=== PATIENT | female | born 1985 | race Caucasian/White ===

== ENCOUNTER 2017-10-23 00:10 | Emergency (ER) | payer SELFPAY ==
[2017-10-23 00:11] VITALS: BP 147/96; PULSE 90; RESP 17; TEMP 36.2; O2SAT 100; BMI 29.3
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
--- NOTE | 2017-10-23 01:02 | ED.DEP ---
ED Disposition - Plan for ED Patient: Disposition: Home or Assisted Living Chief Complaint: Lower Extremity Injury Instructions: ED Fx Ankle Lateral Malleolus Prescriptions: Hydrocodone Bitart/Apap 5-325 [[place] 5/325] 1 - 2 tab PO Q4H PRN PRN 3 Days #12 tab PRN Reason: Pain Referrals: Care Physician,No Primary [Primary Care Provider] - Martínez Dixon DO [STAFF PHYSICIAN] -
--- NOTE | 2017-10-23 01:06 | DCINST.ED_ITS ---
ED Disposition - Plan for ED Patient: Disposition: Home or Assisted Living Chief Complaint: Lower Extremity Injury Instructions: ED Fx Ankle Lateral Malleolus Prescriptions: Hydrocodone Bitart/Apap 5-325 [[place] 5/325] 1 - 2 tab PO Q4H PRN PRN 3 Days #12 tab PRN Reason: Pain Referrals: Care Physician,No Primary [Primary Care Provider] - Martínez Dixon DO [STAFF PHYSICIAN] -
[2017-10-23] MEDS: HYDROcodone Bitartrate/Apap 5/325 Tablet PO (01:53)
== END 2017-10-23 01:56 | disposition home or self-care (01) ==
PROVIDERS: Emergency Provider Emergency Medicine
DX: S82.831A Other fracture of upper and lower end of right fibula, initial encounter for closed fracture (principal); S90.31XA Contusion of right foot, initial encounter; V86.95XA Unspecified occupant of 3- or 4- wheeled all-terrain vehicle (ATV) injured in nontraffic accident, initial encounter; Y93.9 Activity, unspecified; Y92.9 Unspecified place or not applicable; I10 Essential (primary) hypertension
CPT/HCPCS: 73610; 73630; 99284

== ENCOUNTER → 2017-10-29 10:46 | Outpatient (CLI) | payer SELFPAY ==
--- NOTE | 2017-10-29 10:48 | RAD_ITS ---
STUDY: X-RAY - RIGHT ANKLE REASON FOR EXAM: Female, 32 years old. Trauma TECHNIQUE: 2 view(s) of the ankle. COMPARISON: None. FINDINGS: There is again noted an oblique minimally displaced fracture of the distal fibular shaft. Normal medial and lateral malleoli. Normal tibiotalar articulation and ankle mortise. Normal visualized talus and calcaneus. The visualized subtalar, talonavicular, calcaneocuboid and tarsal articulations are normal. There is mild circumferential soft tissue swelling of the right ankle region. RAD/Ankle 2 Views IMPRESSION: Oblique minimally displaced fracture of the distal fibular shaft similar in appearance to the previous study. No significant callus or periosteal new bone formation is evident as of yet. Mild circumferential soft tissue swelling of the right ankle region. Electronically Signed: Gordon Rojas MD at 17:47 EDT , Service support ,
== END ==
PROVIDERS: Visit Provider Orthopaedic Surgery
DX: S82.831A Other fracture of upper and lower end of right fibula, initial encounter for closed fracture (principal); X58.XXXA Exposure to other specified factors, initial encounter
CPT/HCPCS: 73600

== ENCOUNTER 2017-11-07 06:05 | Day surgery (SDC) | payer MEDICAID, SELFPAY ==
[2017-11-07] VITALS (7 sets, daily range): BP systolic 115–144; BP diastolic 69–91; PULSE 69–82; RESP 16; TEMP 36.1–37.1; O2SAT 100; BMI 29.1
[2017-11-07 06:41] LABS: Internal QC Validated? YES +Cl - CLEAR BKGD; Pregnancy, Urine Negative Negative
--- NOTE | 2017-11-07 07:00 | RAD_ITS ---
STUDY: X-RAY - RIGHT ANKLE REASON FOR EXAM: Syndesmotic repair. TECHNIQUE: 3 fluoroscopic view(s) of the ankle. COMPARISON: Radiographs 10/29/2017. FINDINGS: There is a nondisplaced fracture of the distal fibular diaphysis and reduction of the ankle mortise following placement of two syndesmotic screws. 12.1 seconds of fluoroscopy time was used. Electronically Signed: Abdirizak Barrios MD at 9:35 EDT Tel , Service support , RAD/Ankle 2 Views
[2017-11-07] MEDS: Clindamycin 900 MG/50 ML BAG 75 MG IV (07:35)
--- NOTE | 2017-11-07 07:38 | PCM.DC.ORTHO ---
Discharge Diet: No Restrictions - nonweight bearing left leg, elevate, ice as tolerated, follow up in 2 weeks; do not get splint wet, call with concerns Discharge Activity: May Not Drive May shower in (days): 1 Ice area for (Minutes): 20 - Every hour while awake. Weight Bearing Status: Weight bearing as tolerated Keep extremity elevated above heart level: Operative Extremity Call your doctor if your incision/area has: Continuous Slow Oozing, Sudden Increased Bleeding, Increased Pain/ Swelling, Increased Redness, Foul Smelling Discharge Call your doctor if you observe: Fever of 101 or Higher, Coldness, Increased Pain, Numbness or Tingling, Change in Color, Calf discomfort Allergies/Adverse Reactions: Allergies cefuroxime axetil [From Ceftin] Allergy (Verified 10/23/17 00:11) Other cephalexin monohydrate [From Keflex] Allergy (Verified 10/23/17 00:11) Anaphylaxis codeine Allergy (Verified 10/23/17 00:11) Unknown Medications to take at Discharge Oxycodone HCl/Acetaminophen [Percocet 5/325] 1 - 2 tablet PO Q6H PRN PRN 5 Days #56 tablet 11/07/17 The following prescriptions were given: Oxycodone HCl/Acetaminophen [Percocet 5/325] 1 - 2 tablet PO Q6H PRN PRN 5 Days #56 tablet PRN Reason: Pain Primary Care Physician: Care Physician,No Primary [Primary Care Provider] - Please Follow Up With: Humera Hickman, - [phone]
[2017-11-07] MEDS: Ciprofloxacin 400 MG/200 ML BAG 200 MG IV (07:50)
[2017-11-07] MEDS: Mupirocin Ointment 22gm Tube 1 APPLIC (08:13)
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
[2017-11-07] MEDS: HYDROcodone Bitartrate/Apap 5/325 Tablet PO (09:27)
--- NOTE | 2017-11-07 11:56 | SUR.PHASEII ---
CALLED INTO ROOM BY PATIENT WHO HAD AMBULATED INDEPENDENTLY AROUND ROOM AND WAS PARTIALLY DRESSED. BEGAN SCREAMING AT RN THAT SHE WANTED TO LEAVE IMMEDIATELY, I NEED TO SMOKE OR I'M GOING TO GO CRAZY. INSISTED ON BEING DISCHARGED NOW.
== END 2017-11-07 11:57 | disposition home or self-care (01) ==
LOC: SDC 06:10 → AC 06:11
PROVIDERS: Visit Provider Orthopaedic Surgery
PROC: (CPT 27829; principal; 2017-11-07 07:10)
DX: S82.434A Nondisplaced oblique fracture of shaft of right fibula, initial encounter for closed fracture (principal); S93.431A Sprain of tibiofibular ligament of right ankle, initial encounter; V86.95XA Unspecified occupant of 3- or 4- wheeled all-terrain vehicle (ATV) injured in nontraffic accident, initial encounter; Y93.9 Activity, unspecified; Y92.9 Unspecified place or not applicable; F17.200 Nicotine dependence, unspecified, uncomplicated
CPT/HCPCS: 27829; 73600; 76000; 81025; J7120; J0744

== ENCOUNTER → 2017-11-20 13:24 | Outpatient (CLI) | payer SELFPAY ==
--- NOTE | 2017-11-20 13:27 | RAD_ITS ---
STUDY: X-RAY - RIGHT ANKLE REASON FOR EXAM: Fracture. TECHNIQUE: 3 view(s) of the ankle. COMPARISON: Radiographs 10/29/2017. FINDINGS: There is a nondisplaced fracture of the distal fibular diaphysis with early callus formation. There are syndesmotic screws. Normal medial and lateral malleoli. Normal tibiotalar articulation and ankle mortise. Normal visualized talus and calcaneus. The visualized subtalar, talonavicular, calcaneocuboid and tarsal articulations are normal. The radiographs were obtained through a cast. RAD/Ankle min 3 Views IMPRESSION: Healing nondisplaced fracture of the distal fibula. Electronically Signed: Abdirizak Barrios MD at 15:26 EDT Tel , Service support ,
== END ==
PROVIDERS: Visit Provider Orthopaedic Surgery
DX: S82.401A Unspecified fracture of shaft of right fibula, initial encounter for closed fracture (principal)
CPT/HCPCS: 73610

== ENCOUNTER 2017-12-10 12:18 | Emergency (ER) | payer MEDICAID, SELFPAY ==
[2017-12-10 12:19] VITALS: BP 140/79; PULSE 67; RESP 15; TEMP 36.6; BMI 27.1
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
--- NOTE | 2017-12-10 12:55 | RAD_ITS ---
STUDY: X-RAY - RIGHT TIBIA AND FIBULA REASON FOR EXAM: Female, 32 years old. Twisting injury. TECHNIQUE: 2 view(s) of the tibia and fibula were obtained. COMPARISON: Comparison is made to prior examination dated November 20, 2017. FINDINGS: Normal visualized tibia. Healing fracture of the distal fibula with callus formation. 2 screws are seen transfixing the distal tibial fibular joint. The soft tissue structures are unremarkable. RAD/Tibia & Fibula 2 Views IMPRESSION: No acute abnormality is seen. Electronically Signed: Parvez Hi MD at 13:28 EDT Tel [phone], Service support ,
--- NOTE | 2017-12-10 13:38 | ED.DEP ---
ED Disposition - Plan for ED Patient: Disposition: Home or Assisted Living Chief Complaint: Lower Extremity Injury Referrals: Humera Hickman DO [STAFF PHYSICIAN] - 1 Week if not improving Additional Instructions: Ice to Right lower leg. Motrin for pain and inflammation. Follow-up with Dr. Hickman if not improving in 1 week. No new breaks seen on x-ray.
[2017-12-10 13:51] VITALS: PULSE 72; RESP 17; O2SAT 99
== END 2017-12-10 13:52 | disposition home or self-care (01) ==
PROVIDERS: Emergency Provider Emergency Medicine
DX: S82.831D Other fracture of upper and lower end of right fibula, subsequent encounter for closed fracture with routine healing (principal); X58.XXXD Exposure to other specified factors, subsequent encounter; Z72.0 Tobacco use
CPT/HCPCS: 73590; 99282

== ENCOUNTER 2018-01-16 10:20 | Emergency (ER) | payer MEDICAID, SELFPAY ==
[2018-01-16 10:21] VITALS: BP 159/99; PULSE 102; RESP 17; RESP 18; TEMP 36.5; O2SAT 99; BMI 28.0
--- NOTE | 2018-01-16 10:33 | RAD_ITS ---
STUDY: X-RAY - RIGHT ANKLE REASON FOR EXAM: Female, 32 years old. Pain following injury. TECHNIQUE: Single oblique view(s) of the ankle. COMPARISON: None. FINDINGS: There is evidence of 2 screws at the distal tibial fibular joint. There is evidence of a healed fracture of the distal fibula. The soft tissue structures are unremarkable. RAD/Ankle 2 Views IMPRESSION: No acute abnormality is seen. Electronically Signed: Parvez Hi MD at 11:07 EDT Tel [phone], Service support ,
--- NOTE | 2018-01-16 10:33 | RAD_ITS ---
STUDY: X-RAY - RIGHT TIBIA AND FIBULA REASON FOR EXAM: Female, 32 years old. Pain and swelling following recent injury. TECHNIQUE: 2 view(s) of the tibia and fibula were obtained. COMPARISON: None. FINDINGS: Normal visualized tibia. Healed fracture of the distal fibular shaft. 2 metallic screws are seen transfixing the distal tibial fibular joint. The soft tissue structures are unremarkable. RAD/Tibia & Fibula 2 Views IMPRESSION: No acute abnormality is seen. Electronically Signed: Parvez Hi MD at 11:08 EDT Tel [phone], Service support ,
--- NOTE | 2018-01-16 10:35 | ED.VISSUMM ---
- ER Visit Summary Date of Service: 01/16/18 Chief Complaint: Ankle pain History of Present Illness: The patient is a 32 F with ankle pain for 3 days now. She twisted her ankle. The pain is over her right lateral malleolus and it does radiate up her mid lower leg. No other injuries or complaints. She did have surgery on her right lateral malleolus in September of this year. She has had ongoing pain since the surgery. Physical Examination: Vital signs unremarkable. Inspection of her right leg shows a healed surgical incision over her lateral malleolus. No obvious deformities. Skin is intact. Good range of motion. She is neurovascular intact distally. She does have pain on palpation over her right lateral malleolus and right shaft tibia/fibula. Calves soft and supple. Test Results: X-rays of the right ankle and right tib-fib were obtained. Emergency Department Course and Treatment: Patient treated with [place] and naproxen while awaiting results. X-rays negative. Patient advised to rest, ice, elevate. Anti-inflammatories for pain. She was given an Aircast. She has crutches at home, and she was advised to use them. She was given a work note and advised to follow-up with her doctor. Return for any new or worsening issues. Treatment Plan: As above Disposition: Discharged Impression: 1. Right ankle pain This note was generated with [employer] dictation software. It may contain incorrect words, spelling, and punctuation that were not noted in review of the chart prior to signing ED Disposition - Plan for ED Patient: Chief Complaint: Lower Extremity Injury Referrals: Care Physician,No Primary [Primary Care Provider] -
[2018-01-16] MEDS: HYDROcodone Bitartrate/Apap 5/325 Tablet PO (10:45)
[2018-01-16] MEDS: Naproxen 500 MG Tablet PO (10:45)
--- NOTE | 2018-01-16 11:33 | ED.DEP ---
ED Disposition - Plan for ED Patient: Chief Complaint: Lower Extremity Injury Instructions: What Are Ankle Sprains? Additional Instructions: follow up with your doctor
== END 2018-01-16 11:50 | disposition home or self-care (01) ==
LOC: ED 10:36
PROVIDERS: Emergency Provider Emergency Medicine
DX: M25.571 Pain in right ankle and joints of right foot (principal)
CPT/HCPCS: 73590; 73600; 99282

== ENCOUNTER 2018-04-07 23:48 | Emergency (ER) | payer SELFPAY ==
[2018-04-07 23:50] VITALS: BP 163/96; PULSE 82; RESP 17; TEMP 36.8; O2SAT 100; BMI 27.2
--- NOTE | 2018-04-08 00:47 | ED.VISSUMM ---
- ER Visit Summary Date of Service: 04/08/18 Chief Complaint: Dental pain History of Present Illness: The patient is a 33 F who reports long-standing bad teeth that need to be pulled. She states she has had increased pain to her left lower teeth over the past 3 days. No recent injury is been noted. No fever or chills. Physical Examination: Vital signs significant for blood pressure of 163/96, otherwise unremarkable. Head and neck examination was no facial edema or erythema. Intraoral examination reveals multiple dental caries and decayed teeth. She does have gum edema surrounding the left mandibular lateral incisor, canine, and first premolar. There is no evidence of Jens's angina. She has no trismus. There is no significant cervical lymphadenopathy. Heart is regular rate and rhythm without murmur. Lung sounds are clear. Test Results: [] Emergency Department Course and Treatment: Patient is treated with Naprosyn and Pen-Vee K, first doses given here. Dental referral list is provided. Blood pressure at time of discharge is 136/86. Treatment Plan: [] Disposition: Discharge Impression: Odontalgia This note was generated with [employer] dictation software. It may contain incorrect words, spelling, and punctuation that were not noted in review of the chart prior to signing ED Disposition - Plan for ED Patient: Disposition: Home or Assisted Living Chief Complaint: Dental Instructions: ED Tooth Pain Prescriptions: Naproxen [Naprosyn] 500 mg PO BID PRN PRN #20 tablet PRN Reason: Pain Penicillin V Potassium 500 mg PO 4X/DAY #40 tablet Additional Instructions: Dental list provided
[2018-04-08 00:53] VITALS: BP 136/86; PULSE 78; RESP 16; O2SAT 98
[2018-04-08] MEDS: Penicillin Vk 250 MG Tablet 500 MG PO (00:54)
[2018-04-08] MEDS: Naproxen 500 MG Tablet PO (00:54)
== END 2018-04-08 01:01 | disposition home or self-care (01) ==
PROVIDERS: Emergency Provider Emergency Medicine
DX: K02.9 Dental caries, unspecified (principal); Z72.0 Tobacco use
CPT/HCPCS: 99283

== ENCOUNTER 2018-07-06 14:12 | Emergency (ER) | payer SELFPAY ==
[2018-07-06 14:12] VITALS: BP 164/105; PULSE 92; RESP 93; TEMP 36.6; O2SAT 100; BMI 26.4
--- NOTE | 2018-07-06 14:37 | RAD_ITS ---
STUDY: X-RAY - RIGHT HIP REASON FOR EXAM: Female, 33 years old. Fall. Pain. TECHNIQUE: 2 views of the hip. COMPARISON: None. FINDINGS: Normal femoral head, neck, intertrochanteric region and visualized proximal femur. Normal acetabulum. Normal hip joint. Normal visualized superior and inferior pubic rami and ischial tuberosities. RAD/HIP, UNI W/ Pelvis 2-3 Views IMPRESSION: Normal x-ray examination of the hip. Electronically Signed: Clement Trevino MD at 15:19 EST , Service support ,
[2018-07-06] MEDS: HYDROcodone Bitartrate/Apap 5/325 Tablet PO (15:16)
--- NOTE | 2018-07-06 15:57 | ED.DCSUM_ITS ---
- ER Visit Summary Date of Service: 07/06/18 Chief Complaint: [Injury to right hip] History of Present Illness: The patient is a 33 F [presents to the emergency department complaint of injury to her right hip that occurred 3 days ago. Patient states that she was carrying some wood when she tripped over a piece of wood injuring her right hip in a twisting fashion. Patient did not actually fall. Since that time patient's been having pain in her right hip that at times will radiate down her right leg. Patient also complains of some chronic pain to her right lower extremity from prior fracture that required surgery earlier in the year. Patient's orthopedic surgeon is Dr. Murillo. Patient has no primary care physician.] Physical Examination: HEENT-PERRLA, EOMI. Cranial nerves II through XII grossly intact. TMs clear. Mucous membranes moist. No adenopathy. Cardiovascular-regular rate and rhythm without murmur or ectopy Lungs-clear to auscultation, chest wall stable without crepitus or subcu emphysema Abdomen-normoactive bowel sounds, soft, nontender, no rebound or rigidity, no peritoneal signs. Extremities-intact ?4, normal range of motion, normal pulses. Right hip-patient has diffuse tenderness about the right hip and into the right buttock over the piriformis muscle. Patient has pain with straight leg raising and logrolling. No obvious deformity noted. No erythema or warmth noted. Neurovascular intact distally. Patient does have some bruising to the right anterior ortiz that she states is from bumping into wood and from carrying wood. Patient has some tenderness to palpation over the right lateral distal tibia just above the site of her surgical incision. [] Test Results: [X-rays of the right hip and pelvis obtained were normal] Emergency Department Course and Treatment: [Patient was given one [place] for pain.] Treatment Plan: [Patient advised to follow-up with her orthopedic surgeon within next 3-5 days.] Disposition: [Discharged home in stable condition] Impression: [Right hip sprain] This note was generated with [employer] dictation software. It may contain incorrect words, spelling, and punctuation that were not noted in review of the chart prior to signing ED Disposition - Plan for ED Patient: Chief Complaint: Lower Extremity Injury Referrals: Care Physician,No Primary [Primary Care Provider] -
--- NOTE | 2018-07-06 15:58 | DCINST.ED_ITS ---
ED Disposition - Plan for ED Patient: Chief Complaint: Lower Extremity Injury Instructions: ED Sprain Hip Prescriptions: Hydrocodone Bitart/Apap 5-325 [[place] 5MG-325MG] 1 tab PO Q4H PRN PRN 2 Days #14 tab PRN Reason: Pain Referrals: Care Physician,No Primary [Primary Care Provider] - Humera Hickman DO [STAFF PHYSICIAN] - 3-5 Days
[2018-07-06 16:12] VITALS: RESP 18
--- OUTSIDE RECORDS SUMMARY | 2018-10-09 11:46 | XMS RPT_ITS ---
:1985 Author Organization OHIP Support Name Relationship Address Phone GONSALO, MARY Unavailable [address] + [place] [address] RED LOBSTER Un[address] + [place] [address] [employer] Unavailable [address] + [place] [address] GONSALO, MARY Unavailable [address] + [place] [address] [employer] Unavailable [address] + [place] [address] GONSALO, MARY Unavailable [address] + [place] [address] GONSALO, MARY Unavailable [address] + [place] [address] UE Unavailable Unavailable Unavailable GONSALO, MARY Unavailable [address] + [place] [address] UE Unavailable Unavailable Unavailable GONSALO, MARY Unavailable [address] + [place] [address] UE Unavailable Unavailable Unavailable GONSALO, MARY Unavailable [address] + [place] [address] UE Unavailable Unavailable Unavailable B[employer] Unavailable [address] + [place] [address] GONSALO, MARY Unavailable [address] + [place] [address] [employer] Unavailable [address] + [place] [address] GONSALO, MARY Unavailable [address] + [place] [address] GONSALO, MARY Unavailable [address] + [place] [address] UE Unavailable Unavailable Unavailable GONSALO, MARY Unavailable [address] + [place] [address] UE Unavailable Unavailable Unavailable GONSALO, MARY Unavailable [address] + [place] [address] UE Unavailable Unavailable Unavailable Care Team Providers Name Role Phone Antonio Zaldivar Attending Unavailable No Doctor Assigned, Nodr Primary Care Unavailable MARY FERREIRA Referring Unavailable COBY IYV Referring Unavailable Primay Care Physicia, No Primary Care Unavailable Ungur, Remus Attending Unavailable Primay Care Physicia, No Primary Care Unavailable Mikayla Hanson Attending Unavailable Primay Care Physicia, No Primary Care Unavailable Marvel Palomares Attending Unavailable Chicorelli, Humera Attending Unavailable Primay Care Physicia, No Referring Unavailable Primay Care Physicia, No Primary Care Unavailable Elmer Curiel Attending Unavailable Chicorelli, Humera Attending Unavailable Chicorelli, Humera Attending Unavailable ChicorelHumera greenberg Referring Unavailable Primay Care Physicia, No Primary Care Unavailable Chicorelyari, Humera Attending Unavailable Primay Care Physicia, No Referring Unavailable Primay Care Physicia, No Primary Care Unavailable Vick, Humera Attending Unavailable Chicorelyari, Humera Referring Unavailable Primay Care Physicia, No Primary Care Unavailable Martínez Dixon Attending Unavailable Martínez Dixon Referring Unavailable Primay Care Physicia, No Primary Care Unavailable Martínez Dixon Attending Unavailable Primay Care Physicia, No Referring Unavailable Primay Care Physicia, No Primary Care Unavailable Primay Care Physicia, No Primary Care Unavailable Dakota Campoverde Attending Unavailable PROBLEMS PROBLEMS DATE TYPE CONDITION / CODE ATTENDING STATUS SOURCE 07/06/2018 Unknown S73.109A - Ungur, Remus Active [place] Unspecified sprain [facility] hip, initial Repository encounter / S73.109A(ICD-10) 03/10/2018 Active Pain in right NA Active [facility] finger(s) / Main [place] M79.644(ICD-10) Repository 12/10/2017 Active Pain in right NA Active [facility] lower leg / Main [place] M79.661(ICD-10) Repository 11/20/2017 Unknown S82.401A - Chicorelli, Active [place] Unspecified [facility] fracture of shaft Hospital of right fibula, Repository initial encounter for closed fracture / S82.401A(ICD-10) 06/05/2018 Unknown S82.434A - Chicorelli, Active [place] Nondisplaced Humera Community oblique fracture Hospital of shaft of right Repository fibula, initial encounter for closed fracture / S82.434A(ICD-10) 06/05/2018 Unknown S93.431A - Sprain Vick, Active [place] of tibiofibular [facility] ligament of right Hospital ankle, initial Repository encounter / S93.431A(ICD-10) 10/29/2017 Unknown M25.571 - Pain in Martínez Dixon Active [place] right ankle and Community joints of right Hospital foot / Repository M25.571(ICD-10) 10/29/2017 Unknown S82.899A - Other Martínez Dixon Active [place] fracture of Community unspecified lower Hospital leg, initial Repository encounter for closed fracture / S82.899A(ICD-10) PROCEDURES PROCEDURES No Procedure Records FoundRESULTS RESULTS PROGRESS Observed: 07/26/2018 Status: COMPLETED Source: [place] 11:11 AM [facility] REPOSITORY HNO ID: [id number] Author: Jazmine Willson (Pa) Service: (none) Author Type: Physician Patent Engineer Type: Progress Notes Filed: 07/26/2018 4:09 PM Note Text: Subjective HPI HPI Keith Sibley is a 33 year old female who presents today for CC of L lower tooth pain that started a couple days ago. States that she has to get a bunch of teeth cut out but has had issues with getting dental insurance. States she is heading to job and family services about insurance when she leaves her. Notes a lot of pain that has kept her up in the past 24 hours. Unable to eat or drink without extreme sensitivity. States that the pain is radiating to her L ear. Pt has tried orajel, which helps for 5-10 minutes then recurs. States that she has tried both IBU and Tylenol. BP 128/88 Pulse 80 Temp 36.3 ?C (97.3 ?F) (Left Tympanic) Resp 16 Wt 77.7 kg (171 lb 6.4 oz) BMI 26.85 kg/m? ALLERGIES Allergen Reactions - Ceftin [Cefuroxime * Unknown - Codeine Unknown - Keflex [Cephalexin] Unknown There is no problem list on file for this patient. No family history on file. Social History Marital status: Spouse name: Years of education: Number of children: Social History Main Topics Smoking status: Current Every Day Smoker Packs/day: 0.50 Years: 0.00 Smokeless tobacco: Never Used Alcohol use: No Drug use: No Review of Systems Constitutional: Negative for chills, fever and malaise/fatigue. HENT: Positive for ear pain. Neurological: Positive for headaches (Doesn't normally gets these and attributes it to her mouth hurting). Objective Physical Exam Constitutional: She is oriented to person, place, and time and well-developed, well-nourished, and in no distress. Vital signs are normal. HENT: Head: Normocephalic. Right Ear: Tympanic membrane, external ear and ear canal normal. No drainage. Tympanic membrane is not perforated, not erythematous, not retracted and not bulging. No middle ear effusion. Left Ear: Ear canal normal. No drainage. Tympanic membrane is not perforated, not erythematous, not retracted and not bulging. No middle ear effusion. Nose: No rhinorrhea. Right sinus exhibits no maxillary sinus tenderness and no frontal sinus tenderness. Left sinus exhibits no maxillary sinus tenderness and no frontal sinus tenderness. Mouth/Throat: Uvula is midline and mucous membranes are normal. Abnormal dentition (Extremely poor dentition; significant erythema and localized tenderness around area as outlined). No oropharyngeal exudate, posterior oropharyngeal edema, posterior oropharyngeal erythema or tonsillar abscesses. Eyes: Conjunctivae and lids are normal. Cardiovascular: Normal rate, regular rhythm, S1 normal and S2 normal. Exam reveals no friction rub. Pulmonary/Chest: Effort normal and breath sounds normal. She has no wheezes. She has no rhonchi. She has no rales. Lymphadenopathy: Head (right side): No submental, no submandibular, no tonsillar, no preauricular, no posterior auricular and no occipital adenopathy present. Head (left side): No submental, no submandibular, no tonsillar, no preauricular, no posterior auricular and no occipital adenopathy present. Right cervical: No superficial cervical and no posterior cervical adenopathy present. Left cervical: No superficial cervical and no posterior cervical adenopathy present. Neurological: She is oriented to person, place, and time. ASSESSMENT/PLAN: 1. Infection of tooth - ICD9: 522.4, ICD10: K04.7 Rx for Amoxicillin AND NSAIDs; let her know this is not curative and needs addressed by a dentist for extraction APRIL - AMOXICILLIN 875 MG TABLET - NAPROXEN 500 MG TABLET Reviewed red flags with patient and when to seek care sooner. The patient indicates understanding of these issues and agrees with the plan. Jazmine Willson PA-C CNOV Observed: 07/26/2018 Status: COMPLETED Source: [place] 11:00 AM [facility] REPOSITORY Office Visit ([facility]) MAX SIBLEYCarolyn Salazar ([id number]) 1985 F Date Time Provider Department 07/26/18 11:00 AM JAZMINE WILLSON ([place]IM[place]) [facility] During your visit today, we recorded the following information about you: Temperature Pulse Respiration Blood pressure 97.3 degrees 80/minute 16/minute 128/88 Weight 77.7 kg Jazmine Willson PA-C 07/26/2018 4:09 PM Signed Subjective HPI HPI Keith Salazar Toñito is a 33 year old female who presents today for CC of L lower tooth pain that started a couple days ago. States that she has to get a bunch of teeth cut out but has had issues with getting dental insurance. States she is heading to job and family services about insurance when she leaves her. Notes a lot of pain that has kept her up in the past 24 hours. Unable to eat or drink without extreme sensitivity. States that the pain is radiating to her L ear. Pt has tried orajel, which helps for 5-10 minutes then recurs. States that she has tried both IBU and Tylenol. BP 128/88 Pulse 80 Temp 36.3 ?C (97.3 ?F) (Left Tympanic) Resp 16 Wt 77.7 kg (171 lb 6.4 oz) BMI 26.85 kg/m? ALLERGIES Allergen Reactions - Ceftin [Cefuroxime * Unknown - Codeine Unknown - Keflex [Cephalexin] Unknown There is no problem list on file for this patient. No family history on file. Social History Marital status: Spouse name: Years of education: Number of children: Social History Main Topics Smoking status: Current Every Day Smoker Packs/day: 0.50 Years: 0.00 Smokeless tobacco: Never Used Alcohol use: No Drug use: No Review of Systems Constitutional: Negative for chills, fever and malaise/fatigue. HENT: Positive for ear pain. Neurological: Positive for headaches (Doesn't normally gets these and attributes it to her mouth hurting). Objective Physical Exam Constitutional: She is oriented to person, place, and time and well-developed, well-nourished, and in no distress. Vital signs are normal. HENT: Head: Normocephalic. Right Ear: Tympanic membrane, external ear and ear canal normal. No drainage. Tympanic membrane is not perforated, not erythematous, not retracted and not bulging. No middle ear effusion. Left Ear: Ear canal normal. No drainage. Tympanic membrane is not perforated, not erythematous, not retracted and not bulging. No middle ear effusion. Nose: No rhinorrhea. Right sinus exhibits no maxillary sinus tenderness and no frontal sinus tenderness. Left sinus exhibits no maxillary sinus tenderness and no frontal sinus tenderness. Mouth/Throat: Uvula is midline and mucous membranes are normal. Abnormal dentition (Extremely poor dentition; significant erythema and localized tenderness around area as outlined). No oropharyngeal exudate, posterior oropharyngeal edema, posterior oropharyngeal erythema or tonsillar abscesses. Eyes: Conjunctivae and lids are normal. Cardiovascular: Normal rate, regular rhythm, S1 normal and S2 normal. Exam reveals no friction rub. Pulmonary/Chest: Effort normal and breath sounds normal. She has no wheezes. She has no rhonchi. She has no rales. Lymphadenopathy: Head (right side): No submental, no submandibular, no tonsillar, no preauricular, no posterior auricular and no occipital adenopathy present. Head (left side): No submental, no submandibular, no tonsillar, no preauricular, no posterior auricular and no occipital adenopathy present. Right cervical: No superficial cervical and no posterior cervical adenopathy present. Left cervical: No superficial cervical and no posterior cervical adenopathy present. Neurological: She is oriented to person, place, and time. ASSESSMENT/PLAN: 1. Infection of tooth - ICD9: 522.4, ICD10: K04.7 Rx for Amoxicillin AND NSAIDs; let her know this is not curative and needs addressed by a dentist for extraction APRIL - AMOXICILLIN 875 MG TABLET - NAPROXEN 500 MG TABLET Reviewed red flags with patient and when to seek care sooner. The patient indicates understanding of these issues and agrees with the plan. Jazmine Willson PA-C Referring Provider: SELF [200] Allergies As of Date: 07/26/2018 Noted Allergy Reaction CEFTIN (CEFUROXIME AXETIL) 11/07/2012 16 - Unknown CODEINE 11/07/2012 16 - Unknown KEFLEX (CEPHALEXIN) 11/07/2012 16 - Unknown Date Reviewed: 07/26/2018 Reviewed by: Jessica Goldberg Ma - Fully Assessed Reason for Visit: Toothache [1289] Primary Visit Diagnosis:Infection of tooth [K04.7] Order(s):amoxicillin (AMOXIL) 875 mg tabletTake 1 tablet by mouth twice daily for 10 days.Disp: 20 tabletRfl: 0 naproxen (NAPROSYN) 500 mg tabletTake 1 tablet by mouth twice daily with meals. Take with food.Disp: 30 tabletRfl: 0 Prescriptions as of 07/26/2018 Sig: AMOXICILLIN 875 MG TABLET Take 1 tablet by mouth twice * NAPROXEN 500 MG TABLET Take 1 tablet by mouth twice * CYCLOBENZAPRINE 10 MG TABLET Take one tab po qhs only Patient not taking: Reported on 12/10/2017 BROMPHENIRAMINE-PSEUDOEPHEDRI* Take 5 mL by mouth four times* Patient not taking: Reported on 12/10/2017 METOPROLOL TARTRATE 25 MG TAB* Take 25 mg by mouth twice bud* HYDROCODONE 5 MG-ACETAMINOPHE* Take 1-2 tablets by mouth emelia* ONDANSETRON 4 MG DISINTEGRATI* Take 1 tablet by mouth every * Problem List As Of Date: 07/26/2018 (None) Prescriptions ordered this encounter Disp Refills Start End AMOXICILLIN 875 MG TABLET 20 t* 0 07/26/2018 08/05/2018 Route: ORAL Sig: Take 1 tablet by mouth twice daily for 10 days. NAPROXEN 500 MG TABLET 30 t* 0 07/26/2018 Route: ORAL Sig: Take 1 tablet by mouth twice daily with meals. Take with food. Letter Text Jazmine Willson PA-C Urgent Care [address] [facility] [address] Dept: [phone] 07/26/2018 Keith Sibley [address] [facility] [address] To Whom it May Concern: This is to certify that Keith Sibley was seen at our office for medical care. Keith may return to work on 07/27/17. If you have any questions please feel free to call. Sincerely: Jazmine Willson PA-C Letter Text Jazmine Willson PA-C Urgent Care [address] [facility] [address] Dept: [phone] 07/26/2018 Keith Sibley [address] [facility] [address] To Whom it May Concern: This is to certify that Keith Sibley was seen at our office for medical care. Keith may return to work on 07/27/17. If you have any questions please feel free to call. Sincerely: Jazmine Willson PA-C Encounter Status:Closed by JAZMINE WILLSON on 07/26/18 DISCHARGE INSTRUCTION Observed: 07/06/2018 Status: F Source: [place] 3:58 PM [facility] REPOSITORY [facility] Medical Records Department [address] [place] [address] Discharge Instruction 07/06/18 1557 MR#: [id number] Acct: [id number] Name: KEITH SIBLEY Rep #: [id number] : 1985 33 From: Ayse Guzmán DO PCP: Care Physician, No Primary Status: PRE ER ED Disposition - Plan for ED Patient: Chief Complaint: Lower Extremity Injury Instructions: ED Sprain Hip Prescriptions: Hydrocodone Bitart/Apap 5-325 [Purchase 5MG-325MG] 1 tab PO Q4H PRN PRN 2 Days #14 tab PRN Reason: Pain Referrals: Care Physician,No Primary [Primary Care Provider] - Humera Hickman DO [STAFF PHYSICIAN] - 3-5 Days What to do if you have Problems For any increased pain, shortness of breath, bleeding, nausea or vomiting, chest pain, or any unexpected problems, contact your Primary Care Provider. Call [facility] ([phone]) or report to the closest Emergency Room. Call 911 if necessary. 07/06/18 1558 <Electronically signed by Ayse Guzmán DO> Date Ayse Guzmán DO Cosigner Signature (If Indicated): Date CC: No Primary Care Physician EMERGENCY DEPARTMENT Observed: 07/06/2018 Status: F Source: [place] SUMMARY 3:57 PM [facility] REPOSITORY [facility] Medical Records Department [address] [place] [address] Emergency Department Summary 07/06/18 1554 MR#: [id number] Acct: [id number] Name: KEITH SIBLEY Rep #: [id number] : 1985 33 From: Ayse Guzmán DO PCP: Care Physician, No Primary Status: PRE ER - ER Visit Summary Date of Service: 07/06/18 Chief Complaint: [Injury to right hip] History of Present Illness: The patient is a 33 F [presents to the emergency department complaint of injury to her right hip that occurred 3 days ago. Patient states that she was carrying some wood when she tripped over a piece of wood injuring her right hip in a twisting fashion. Patient did not actually fall. Since that time patient's been having pain in her right hip that at times will radiate down her right leg. Patient also complains of some chronic pain to her right lower extremity from prior fracture that required surgery earlier in the year. Patient's orthopedic surgeon is Dr. Murillo. Patient has no primary care physician.] Physical Examination: HEENT-PERRLA, EOMI. Cranial nerves II through XII grossly intact. TMs clear. Mucous membranes moist. No adenopathy. Cardiovascular-regular rate and rhythm without murmur or ectopy Lungs-clear to auscultation, chest wall stable without crepitus or subcu emphysema Abdomen-normoactive bowel sounds, soft, nontender, no rebound or rigidity, no peritoneal signs. Extremities-intact 4, normal range of motion, normal pulses. Right hip-patient has diffuse tenderness about the right hip and into the right buttock over the piriformis muscle. Patient has pain with straight leg raising and logrolling. No obvious deformity noted. No erythema or warmth noted. Neurovascular intact distally. Patient does have some bruising to the right anterior ortiz that she states is from bumping into wood and from carrying wood. Patient has some tenderness to palpation over the right lateral distal tibia just above the site of her surgical incision. [] Test Results: [X-rays of the right hip and pelvis obtained were normal] Emergency Department Course and Treatment: [Patient was given one Purchase for pain.] Treatment Plan: [Patient advised to follow-up with her orthopedic surgeon within next 3-5 days.] Disposition: [Discharged home in stable condition] Impression: [Right hip sprain] This note was generated with Stick and Play dictation software. It may contain incorrect words, spelling, and punctuation that were not noted in review of the chart prior to signing ED Disposition - Plan for ED Patient: Chief Complaint: Lower Extremity Injury Referrals: Care Physician,No Primary [Primary Care Provider] - What to do if you have Problems For any increased pain, shortness of breath, bleeding, nausea or vomiting, chest pain, or any unexpected problems, contact your Primary Care Provider. Call [facility] ([phone]) or report to the closest Emergency Room. Call 911 if necessary. 07/06/18 1557 <Electronically signed by Ayse Guzmán DO> Date Ayse Guzmán DO Cosigner Signature (If Indicated): Date CC: No Primary Care Physician HIP, UNI W/ PELVIS Observed: 07/06/2018 Status: F Source: [place] 2-3 VIEWS 2:38 PM [facility] REPOSITORY [facility] Imaging Services [address] [place] [address] HIP, UNI W/ Pelvis 2-3 Views MR#: [id number] Acct: [id number] Name: KEITH SIBLEY Rep #: [id number] : 1985 F 33 From: Clement Trevino MD PCP: Care Physician, No Primary Status: PRE ER Study: HIP, UNI W/ Pelvis 2-3 Views Date of Exam: 07/06/18 Exam# [id number] Ordering Dr: Ayse Guzmán DO STUDY: X-RAY - RIGHT HIP REASON FOR EXAM: Female, 33 years old. Fall. Pain. TECHNIQUE: 2 views of the hip. COMPARISON: None. FINDINGS: Normal femoral head, neck, intertrochanteric region and visualized proximal femur. Normal acetabulum. Normal hip joint. Normal visualized superior and inferior pubic rami and ischial tuberosities. RAD/HIP, UNI W/ Pelvis 2-3 Views IMPRESSION: Normal x-ray examination of the hip. Electronically Signed: Clement Trevino MD at 15:19 EST , Service support , CC: No Primary Care Physician; Ayse Guzmán DO Solutions Manager: Signed EMERGENCY DEPARTMENT Observed: 04/08/2018 Status: F Source: [place] SUMMARY 8:25 AM [facility] REPOSITORY [facility] Medical Records Department [address] [place] [address] Emergency Department Summary 04/08/18 0047 MR#: [id number] Acct: [id number] Name: KEITH SIBLEY Rep #: [id number] : 1985 33 From: Mikayla Hanson MD PCP: Care Physician, No Primary Status: DEP ER - ER Visit Summary Date of Service: 04/08/18 Chief Complaint: Dental pain History of Present Illness: The patient is a 33 F who reports long-standing bad teeth that need to be pulled. She states she has had increased pain to her left lower teeth over the past 3 days. No recent injury is been noted. No fever or chills. Physical Examination: Vital signs significant for blood pressure of 163/96, otherwise unremarkable. Head and neck examination was no facial edema or erythema. Intraoral examination reveals multiple dental caries and decayed teeth. She does have gum edema surrounding the left mandibular lateral incisor, canine, and first premolar. There is no evidence of Jens's angina. She has no trismus. There is no significant cervical lymphadenopathy. Heart is regular rate and rhythm without murmur. Lung sounds are clear. Test Results: [] Emergency Department Course and Treatment: Patient is treated with Naprosyn and Pen-Vee K, first doses given here. Dental referral list is provided. Blood pressure at time of discharge is 136/86. Treatment Plan: [] Disposition: Discharge Impression: Odontalgia This note was generated with Stick and Play dictation software. It may contain incorrect words, spelling, and punctuation that were not noted in review of the chart prior to signing ED Disposition - Plan for ED Patient: Disposition: Home or Assisted Living Chief Complaint: Dental Instructions: ED Tooth Pain Prescriptions: Naproxen [Naprosyn] 500 mg PO BID PRN PRN #20 tablet PRN Reason: Pain Penicillin V Potassium 500 mg PO 4X/DAY #40 tablet Additional Instructions: Dental list provided What to do if you have Problems For any increased pain, shortness of breath, bleeding, nausea or vomiting, chest pain, or any unexpected problems, contact your Primary Care Provider. Call [facility] ([phone]) or report to the closest Emergency Room. Call 911 if necessary. 04/08/18 9354 <Electronically signed by Mikayla Hanson MD> Date Mikayla Hanson MD Cosigner Signature (If Indicated): Date CC: No Primary Care Physician DISCHARGE INSTRUCTION Observed: 04/08/2018 Status: F Source: [place] 12:48 AM [facility] REPOSITORY [facility] Medical Records Department [address] [place] [address] Discharge Instruction 04/08/18 004 MR#: [id number] Acct: [id number] Name: KEITH SIBLEY Rep #: [id number] : 1985 33 From: Mikayla Hanson MD PCP: Care Physician, No Primary Status: PRE ER ED Disposition - Plan for ED Patient: Disposition: Home or Assisted Living Chief Complaint: Dental Instructions: ED Tooth Pain Prescriptions: Naproxen [Naprosyn] 500 mg PO BID PRN PRN #20 tablet PRN Reason: Pain Penicillin V Potassium 500 mg PO 4X/DAY #40 tablet Additional Instructions: Dental list provided What to do if you have Problems For any increased pain, shortness of breath, bleeding, nausea or vomiting, chest pain, or any unexpected problems, contact your Primary Care Provider. Call [facility] ([phone]) or report to the closest Emergency Room. Call 911 if necessary. 04/08/1847 <Electronically signed by Mikayla Hanson MD> Date Mikayla Hanson MD Cosigner Signature (If Indicated): Date CC: No Primary Care Physician PROGRESS Observed: 03/10/2018 Status: COMPLETED Source: [place] 12:30 PM [facility] REPOSITORY O ID: [id number] Author: Coby Ivy Service: (none) Author Type: Nurse Practitioner Type: Progress Notes Filed: 03/10/2018 1:14 PM Note Text: Subjective HPI Pt presents with c/o right thumb pain and swelling x 1 week. Denies known recent/remote injury. Has full ROM but is painful. Pain described as sharp, continuous, intermittent radiculopathy up forearm. Denies sensory changes. Has taken several doses of ibuprofen and tylenol with minimal improvement. No hx gout. Review of Systems Constitutional: Negative for chills and fever. Musculoskeletal: Positive for joint pain. Objective Physical Exam Constitutional: She is oriented to person, place, and time and well-developed, well-nourished, and in no distress. No distress. Musculoskeletal: Right hand: She exhibits tenderness, bony tenderness and swelling. She exhibits normal range of motion, normal two-point discrimination, normal capillary refill, no deformity and no laceration. Normal sensation noted. Normal strength noted. Hands: Full active ROM against resistance. Hand grasp 5/5. Mild generalized edema. No erythema, heat. Sensory intact. Cap refill 2 sec. radial pulse 2+. Neurological: She is alert and oriented to person, place, and time. Skin: Skin is warm and dry. She is not diaphoretic. BP 132/82 Pulse 68 Temp 36.6 ?C (97.8 ?F) Resp 16 Wt 77.1 kg (170 lb) BMI 26.63 kg/m? .Patient presents with: Thumb Pain: x 1 week right thumb pain radiating up into right elbow PAST MEDICAL HISTORY Diagnosis Date - Hypertension PAST SURGICAL HISTORY Procedure Laterality Date - TUBAL LIGATION, ALLERGIES Ceftin [Cefuroxime Axetil]; Codeine; Keflex [Cephalexin] MEDICATIONS predniSONE (DELTASONE) 20 mg tablet Take 2 tablets by mouth once daily for 5 days. Take daily with food. cyclobenzaprine (FLEXERIL) 10 mg tablet Take one tab po qhs only Tjhzrmzahhuffct-Nymndurmp-PI (BROMFED DM) 2-30-10 mg/5 mL syrup Take 5 mL by mouth four times daily as needed. metoprolol tartrate, short acting, 25 mg tablet Take 25 mg by mouth twice daily. acetaminophen-HYDROcodone 5-500 mg tablet Take 1-2 tablets by mouth every 4 hours as needed for Pain. ondansetron orally disintegrating 4 mg disintegrating tablet Take 1 tablet by mouth every 4 hours as needed for Nausea/Vomiting. No family history on file. Social History Substance Use Topics - Smoking status: Current Every Day Smoker Packs/day: 0.50 - Smokeless tobacco: Never Used - Alcohol use No ASSESSMENT/PLAN: 1. Thumb pain, right - ICD9: 729.5, ICD10: M79.644 - XR DIGIT GENERAL 3V FRONTAL/LAT/OBL RT No acute process. - PREDNISONE 20 MG TABLET The patient is instructed to return or seek emergency treatment if symptoms become worse or with any acute change in condition. The patient verbalizes understanding and is in agreement with plan of care. Coby Ivy CNP XR DIGIT 3V Observed: 03/10/2018 Status: F Source: [place] FRONTAL/LAT/OBL RT 12:21 PM [facility] REPOSITORY * * *Final Report* * * DATE OF EXAM: Mar 10 2018 12:21PM WOX [id number] - XR DIGIT 3V FRONTAL/LAT/OBL RT / PROCEDURE REASON: Pain in right finger(s) * * * * Physician Interpretation * * * * EXAMINATION / TECHNIQUE: XR DIGIT 3V FRONTAL/LAT/OBL RT HISTORY: pt states pain in base of right thumb for a week no inj Pain in right finger(s) . COMPARISON: RESULT: There is no acute fracture or dislocation. The joint spaces are preserved. There is no malalignment. 2 first MTP sesamoids are noted, a normal variant. IMPRESSION: No acute osseous abnormality. Solutions Manager: PSCB Transcribe Date/Time: Mar 10 2018 12:56P Dictated by : ROSARIO CHRISTIE MD This examination was interpreted and the report reviewed and electronically signed by: ROSARIO CHRISTIE MD on Mar 10 2018 12:57PM EST [id number] PROGRESS Observed: 03/10/2018 Status: COMPLETED Source: [place] 12:15 PM [facility] REPOSITORY HNO ID: [id number] Author: Lola Villalta (Rt) Hoa Mcclendon Service: (none) Author Type: [employer] Consultant Type: Progress Notes Filed: 03/10/2018 12:21 PM Note Text: Radiology Service Progress Note PATIENT NAME: Keith Sibley DATE OF SERVICE: March 10, 2018 TIME: 12:15 PM PATIENT IDENTITY VERIFICATION COMPLETED USING TWO (2) METHODS: Patient confirmed name verbally and Date of . PATIENT GENDER DATA: Female. status: : No status: NO. PATIENT RELEVANT IMPLANT DATA REVIEWED: Not Applicable RADIOLOGY DEPARTMENT: General X-ray: Exam(s) Completed: Upper Extremity X-Ray(s): Fingers/Thumb, right : PERIPHERAL IV DATA: Not applicable SIGNED BY: RT Betsy March 10, 2018 12:15 PM CNOV Observed: 03/10/2018 Status: COMPLETED Source: [place] 12:00 PM [facility] REPOSITORY Office Visit (WSTR) KEITH SIBLEY ([id number]) 1985 F Date Time Provider Department 03/10/18 12:00 PM COBY IVY [facility] During your visit today, we recorded the following information about you: Temperature Pulse Respiration Blood pressure 97.8 degrees 68/minute 16/minute 132/82 Weight 77.1 kg Coby Ivy APRN.HEAD STOCK TRANSFER CLERK 03/10/2018 1:14 PM Signed Subjective HPI Pt presents with c/o right thumb pain and swelling x 1 week. Denies known recent/remote injury. Has full ROM but is painful. Pain described as sharp, continuous, intermittent radiculopathy up forearm. Denies sensory changes. Has taken several doses of ibuprofen and tylenol with minimal improvement. No hx gout. Review of Systems Constitutional: Negative for chills and fever. Musculoskeletal: Positive for joint pain. Objective Physical Exam Constitutional: She is oriented to person, place, and time and well-developed, well-nourished, and in no distress. No distress. Musculoskeletal: Right hand: She exhibits tenderness, bony tenderness and swelling. She exhibits normal range of motion, normal two-point discrimination, normal capillary refill, no deformity and no laceration. Normal sensation noted. Normal strength noted. Hands: Full active ROM against resistance. Hand grasp 5/5. Mild generalized edema. No erythema, heat. Sensory intact. Cap refill 2 sec. radial pulse 2+. Neurological: She is alert and oriented to person, place, and time. Skin: Skin is warm and dry. She is not diaphoretic. BP 132/82 Pulse 68 Temp 36.6 ?C (97.8 ?F) Resp 16 Wt 77.1 kg (170 lb) BMI 26.63 kg/m? .Patient presents with: Thumb Pain: x 1 week right thumb pain radiating up into right elbow PAST MEDICAL HISTORY Diagnosis Date - Hypertension PAST SURGICAL HISTORY Procedure Laterality Date - TUBAL LIGATION, ALLERGIES Ceftin [Cefuroxime Axetil]; Codeine; Keflex [Cephalexin] MEDICATIONS predniSONE (DELTASONE) 20 mg tablet Take 2 tablets by mouth once daily for 5 days. Take daily with food. cyclobenzaprine (FLEXERIL) 10 mg tablet Take one tab po qhs only Qplwjorealycoga-Gfageoism-YX (BROMFED DM) 2-30-10 mg/5 mL syrup Take 5 mL by mouth four times daily as needed. metoprolol tartrate, short acting, 25 mg tablet Take 25 mg by mouth twice daily. acetaminophen-HYDROcodone 5-500 mg tablet Take 1-2 tablets by mouth every 4 hours as needed for Pain. ondansetron orally disintegrating 4 mg disintegrating tablet Take 1 tablet by mouth every 4 hours as needed for Nausea/Vomiting. No family history on file. Social History Substance Use Topics - Smoking status: Current Every Day Smoker Packs/day: 0.50 - Smokeless tobacco: Never Used - Alcohol use No ASSESSMENT/PLAN: 1. Thumb pain, right - ICD9: 729.5, ICD10: M79.644 - XR DIGIT GENERAL 3V FRONTAL/LAT/OBL RT No acute process. - PREDNISONE 20 MG TABLET The patient is instructed to return or seek emergency treatment if symptoms become worse or with any acute change in condition. The patient verbalizes understanding and is in agreement with plan of care. Coby Ivy CNP Referring Provider: SELF [[id number]] Allergies As of Date: 03/10/2018 Noted Allergy Reaction CEFTIN (CEFUROXIME AXETIL) 11/07/2012 16 - Unknown CODEINE 11/07/2012 16 - Unknown KEFLEX (CEPHALEXIN) 11/07/2012 16 - Unknown Date Reviewed: 03/10/2018 Reviewed by: Robyn Piedra LPN - Fully Assessed Reason for Visit: Thumb Pain [1582] Cmt: x 1 week right thumb pain radiating up into right elbow Primary Visit Diagnosis:Thumb pain, right [M79.644] Order(s):XR DIGIT GENERAL 3V FRONTAL/LAT/OBL RT [[id number]] Order #: [id number] FUTURE predniSONE (DELTASONE) 20 mg tabletTake 2 tablets by mouth once daily for 5 days. Take daily with food.Disp: 10 tabletRfl: 0 Prescriptions as of 03/10/2018 Sig: PREDNISONE 20 MG TABLET Take 2 tablets by mouth once * CYCLOBENZAPRINE 10 MG TABLET Take one tab po qhs only Patient not taking: Reported on 12/10/2017 BROMPHENIRAMINE-PSEUDOEPHEDRI* Take 5 mL by mouth four times* Patient not taking: Reported on 12/10/2017 METOPROLOL TARTRATE 25 MG TAB* Take 25 mg by mouth twice bud* HYDROCODONE 5 MG-ACETAMINOPHE* Take 1-2 tablets by mouth emelia* ONDANSETRON 4 MG DISINTEGRATI* Take 1 tablet by mouth every * Problem List As Of Date: 03/10/2018 (None) Prescriptions ordered this encounter Disp Refills Start End PREDNISONE 20 MG TABLET 10 t* 0 03/10/2018 03/15/2018 Route: ORAL Sig: Take 2 tablets by mouth once daily for 5 days. Take daily with food. Letter Text Coby Ivy APRN.CNP Urgent Care [address] [facility] [address] Dept: [phone] 03/10/2018 Keith Sibley [address] [facility] [address] To Whom it May Concern: This is to certify that Keith Sibley was seen at our office for medical care. If you have any questions please feel free to call. Sincerely: Coby Ivy APRN.CNP Encounter Status:Closed by COBY IVY CNP on 03/10/18 EMERGENCY DEPARTMENT Observed: 01/16/2018 Status: F Source: [place] SUMMARY 4:29 PM [facility] REPOSITORY [facility] Medical Records Department [address] [place] [address] Emergency Department Summary 01/16/18 1035 MR#: [id number] Acct: [id number] Name: KEITH SIBLEY Rep #: [id number] : 1985 32 From: Marvel Palomares MD PCP: Stephen PhysicianDelilah Primary Status: DEP ER - ER Visit Summary Date of Service: 01/16/18 Chief Complaint: Ankle pain History of Present Illness: The patient is a 32 F with ankle pain for 3 days now. She twisted her ankle. The pain is over her right lateral malleolus and it does radiate up her mid lower leg. No other injuries or complaints. She did have surgery on her right lateral malleolus in September of this year. She has had ongoing pain since the surgery. Physical Examination: Vital signs unremarkable. Inspection of her right leg shows a healed surgical incision over her lateral malleolus. No obvious deformities. Skin is intact. Good range of motion. She is neurovascular intact distally. She does have pain on palpation over her right lateral malleolus and right shaft tibia/fibula. Calves soft and supple. Test Results: X-rays of the right ankle and right tib-fib were obtained. Emergency Department Course and Treatment: Patient treated with [place] and naproxen while awaiting results. X-rays negative. Patient advised to rest, ice, elevate. Anti-inflammatories for pain. She was given an Aircast. She has crutches at home, and she was advised to use them. She was given a work note and advised to follow-up with her doctor. Return for any new or worsening issues. Treatment Plan: As above Disposition: Discharged Impression: 1. Right ankle pain This note was generated with Stick and Play dictation software. It may contain incorrect words, spelling, and punctuation that were not noted in review of the chart prior to signing ED Disposition - Plan for ED Patient: Chief Complaint: Lower Extremity Injury Referrals: Stephen Physician,No Primary [Primary Care Provider] - What to do if you have Problems For any increased pain, shortness of breath, bleeding, nausea or vomiting, chest pain, or any unexpected problems, contact your Primary Care Provider. Call [employer] [facility] ([phone]) or report to the closest Emergency Room. Call 911 if necessary. 01/16/18 6250 <Electronically signed by Marvel Palomares MD> Date Marvel Palomares MD Cosigner Signature (If Indicated): Date CC: No Primary Care Physician DISCHARGE INSTRUCTION Observed: 01/16/2018 Status: F Source: [place] 4:29 PM [facility] Medical Records Department [address] [place] [address] Discharge Instruction 01/16/18 1133 MR#: [id number] Acct: [id number] Name: KEITH SIBLEY Martin Rep #: [id number] : 1985 32 From: Marvel Palomares MD PCP: Care Physician, No Primary Status: [facility] ER ED Disposition - Plan for ED Patient: Chief Complaint: Lower Extremity Injury Instructions: What Are Ankle Sprains? Additional Instructions: follow up with your doctor What to do if you have Problems For any increased pain, shortness of breath, bleeding, nausea or vomiting, chest pain, or any unexpected problems, contact your Primary Care Provider. Call [employer] [facility] ([phone]) or report to the closest Emergency Room. Call 911 if necessary. 01/16/18 1629 <Electronically signed by Marvel Palomares MD> Date Marvel Palomares MD Cosigner Signature (If Indicated): Date CC: No Primary Care Physician ANKLE 2 VIEWS Observed: 01/16/2018 Status: F Source: [place] 10:34 AM [facility] Imaging Services [address] [place] [address] Ankle 2 Views MR#: [id number] Acct: [id number] Name: KEITH SIBLEY Martin Rep #: [id number] : 1985 F 32 From: Parvez Hi MD PCP: Care Physician, No Primary Status: REG ER Study: Ankle 2 Views Date of Exam: 01/16/18 Exam# [id number] Ordering Dr: Marvel Palomares MD STUDY: X-RAY - RIGHT ANKLE REASON FOR EXAM: Female, 32 years old. Pain following injury. TECHNIQUE: Single oblique view(s) of the ankle. COMPARISON: None. FINDINGS: There is evidence of 2 screws at the distal tibial fibular joint. There is evidence of a healed fracture of the distal fibula. The soft tissue structures are unremarkable. RAD/Ankle 2 Views IMPRESSION: No acute abnormality is seen. Electronically Signed: Parvez Hi MD at 11:07 EDT Tel [phone], Service support , CC: No Primary Care Physician; Marvel Palomares MD Solutions Manager: Signed TIBIA AND FIBULA Observed: 01/16/2018 Status: F Source: [place] 2 VIEWS 10:34 AM [facility] REPOSITORY [facility] Imaging Services [address] [place] [address] Tibia AND Fibula 2 Views MR#: [id number] Acct: [id number] Name: KEITH SIBLEY Rep #: [id number] : 1985 F 32 From: Parvez Hi MD PCP: Care Physician, No Primary Status: REG ER Study: Tibia AND Fibula 2 Views Date of Exam: 01/16/18 Exam# [id number] Ordering Dr: Marvel Palomares MD STUDY: X-RAY - RIGHT TIBIA AND FIBULA REASON FOR EXAM: Female, 32 years old. Pain and swelling following recent injury. TECHNIQUE: 2 view(s) of the tibia and fibula were obtained. COMPARISON: None. FINDINGS: Normal visualized tibia. Healed fracture of the distal fibular shaft. 2 metallic screws are seen transfixing the distal tibial fibular joint. The soft tissue structures are unremarkable. RAD/Tibia AND Fibula 2 Views IMPRESSION: No acute abnormality is seen. Electronically Signed: Parvez Hi MD at 11:08 EDT Tel [phone], Service support , CC: No Primary Care Physician; Marvel Palomares MD Solutions Manager: Signed EMERGENCY DEPARTMENT Observed: 12/10/2017 Status: F Source: [place] SUMMARY 4:38 PM [facility] REPOSITORY [facility] Medical Records Department [address] [place] [address] Emergency Department Summary 12/10/17 1239 MR#: [id number] Acct: [id number] Name: KEITH SIBLEY Rep #: [id number] : 1985 32 From: Elmer Curiel MD PCP: Care Physician, No Primary Status: DEP ER - ER Visit Summary Date of Service: 12/10/17 Chief Complaint: Right lower leg and ankle pain History of Present Illness: The patient is a 32 F end of September patient fractured her right lower leg. [facility] right [facility]. Patient states 2 weeks after surgery she is doing well she was driving and Trashcan about 3 days ago. Midnight increased pain. Today she presented to the urgent care and x-ray these think there is a new fracture. And sent her over for evaluation. She denies any other injuries. Physical Examination: Ill-appearing young female. Vital signs stable afebrile. H EENT exam unremarkable. Neck nontender. Lungs clear to auscultation bilaterally. Heart regular in rhythm no murmur. Abdomen soft nontender. She is moving all 4 extremities. Neurovascular intact. Her right lateral malleolus has a well-healed surgical incision. She has tenderness around the right lower leg and ankle. The right foot is neurovascular intact with DP pulse. Normal touch sensation. Normal range of motion. Calves nontender without edema. Right knee and hip are unremarkable. Other extremities are normal. Test Results: Right tibia-fibula x-ray shows prior distal third fibula fracture that is healing. Also [address] But no new break. I did compare this to prior films. Emergency Department Course and Treatment: X-ray showed no acute process and will be discharged home. Treatment Plan: Motrin for pain. Disposition: Discharge Impression: Right lower leg pain status post recent fracture with prior orthopedic surgery. He had This note was generated with Stick and Play dictation software. It may contain incorrect words, spelling, and punctuation that were not noted in review of the chart prior to signing ED Disposition - Plan for ED Patient: Chief Complaint: Lower Extremity Injury Referrals: Care Physician,No Primary [Primary Care Provider] - What to do if you have Problems For any increased pain, shortness of breath, bleeding, nausea or vomiting, chest pain, or any unexpected problems, contact your Primary Care Provider. Call [facility] ([phone]) or report to the closest Emergency Room. Call 911 if necessary. 12/10/17 1638 <Electronically signed by Elmer Curiel MD> Date Elmer Curiel MD Cosigner Signature (If Indicated): Date CC: No Primary Care Physician DISCHARGE INSTRUCTION Observed: 12/10/2017 Status: F Source: [place] 4:38 PM [facility] REPOSITORY [facility] Medical Records Department [address] [place] [address] Discharge Instruction 12/10/17 1338 MR#: [id number] Acct: [id number] Name: TOÑITOKEITH L Rep #: [id number] : 1985 32 From: Elmer Curiel MD PCP: Stephen Physician, No Primary Status: DEP ER ED Disposition - Plan for ED Patient: Disposition: Home or Assisted Living Chief Complaint: Lower Extremity Injury Referrals: Humera Hickman DO [STAFF PHYSICIAN] - 1 Week if not improving Additional Instructions: Ice to Right lower leg. Motrin for pain and inflammation. Follow-up with Dr. Hickman if not improving in 1 week. No new breaks seen on x-ray. What to do if you have Problems For any increased pain, shortness of breath, bleeding, nausea or vomiting, chest pain, or any unexpected problems, contact your Primary Care Provider. Call [facility] ([phone]) or report to the closest Emergency Room. Call 911 if necessary. 12/10/17 1648 <Electronically signed by Elmer Curiel MD> Date Elmer Curiel MD Cosigner Signature (If Indicated): Date CC: No Primary Care Physician TIBIA AND FIBULA Observed: 12/10/2017 Status: F Source: [place] 2 VIEWS 12:40 PM [facility] REPOSITORY [facility] Imaging Services [address] [place] [address] Tibia AND Fibula 2 Views MR#: [id number] Acct: [id number] Name: KEITH SIBLEY Rep #: [id number] : 1985 F 32 From: Parvez Hi MD PCP: Care Physician, No Primary Status: REG ER Study: Tibia AND Fibula 2 Views Date of Exam: 12/10/17 Exam# [id number] Ordering Dr: Elmer Curiel MD STUDY: X-RAY - RIGHT TIBIA AND FIBULA REASON FOR EXAM: Female, 32 years old. Twisting injury. TECHNIQUE: 2 view(s) of the tibia and fibula were obtained. COMPARISON: Comparison is made to prior examination dated November 20, 2017. FINDINGS: Normal visualized tibia. Healing fracture of the distal fibula with callus formation. 2 screws are seen transfixing the distal tibial fibular joint. The soft tissue structures are unremarkable. RAD/Tibia AND Fibula 2 Views IMPRESSION: No acute abnormality is seen. Electronically Signed: Parvez Hi MD at 13:28 EDT Tel [phone], Service support , CC: No Primary Care Physician; Elmer Curiel MD Solutions Manager: Signed XR TIBIA FIBULA 2V Observed: 12/10/2017 Status: F Source: [place] AP/LAT RT 11:53 AM [facility] [place] REPOSITORY * * *Final Report* * * DATE OF EXAM: Dec 10 2017 11:53AM WOX [id number] - XR TIBIA FIBULA 2V AP/LAT RT / PROCEDURE REASON: Pain in right lower leg * * * * Physician Interpretation * * * * HISTORY: Pain in right lower leg Patient/Technologist Provided History: right lateral ankle pain after pulling trashcans 2 days ago. no injury. pt did have fracture repair surgery of this ankle 4 weeks ago. TECHNIQUE: XR TIBIA FIBULA 2V AP/LAT RT COMPARISON: None RESULT: Status post 2 screws across the distal tibiofibular syndesmosis. Hardware appears intact. Healing oblique fracture of the distal fibular shaft with callus formation, in near-anatomic alignment. No acute-appearing displaced fracture. Degenerative changes in the visualized knee. IMPRESSION: Healing fracture status post distal tibiofibular fixation. Solutions Manager: TIFFANIE Transcribe Date/Time: Dec 10 2017 12:37P Dictated by : THONG LUCIO MD This examination was interpreted and the report reviewed and electronically signed by: THONG LUCIO MD on Dec 10 2017 12:39PM EST [id number] Observed: 12/10/2017 Status: COMPLETED Source: [place] 11:16 AM [facility] REPOSITORY HNO ID: [id number] Author: Teresa (Rt) Hoa Sibley Service: (none) Author Type: [employer] Consultant Type: Progress Notes Filed: 12/10/2017 11:53 AM Note Text: Radiology Service Progress Note PATIENT NAME: Keith Sibley DATE OF SERVICE: December 10, 2017 TIME: 11:16 AM PATIENT IDENTITY VERIFICATION COMPLETED USING TWO (2) METHODS: Patient confirmed name verbally and Date of . PATIENT GENDER DATA: Female. status: : No status: NO. PATIENT RELEVANT IMPLANT DATA REVIEWED: Not Applicable RADIOLOGY DEPARTMENT: General X-ray: Exam(s) Completed: Lower Extremity X-Ray(s): Tibia Fibula, Right: PERIPHERAL IV DATA: Not applicable SIGNED BY: RT nAders December 10, 2017 11:16 AM PROGRESS Observed: 12/10/2017 Status: COMPLETED Source: [place] 11:02 AM [facility] REPOSITORY O ID: [id number] Author: Mary Torres) Jhon Service: (none) Author Type: Nurse Practitioner Type: Progress Notes Filed: 12/10/2017 12:10 PM Note Text: Subjective HPI HPI Keith Sibley is a 32 year old female who presents today for CC of Right lower leg pain This started 2 days ago when she was moving an object and she reports hearing a pop and then pain ever since. She reports the pain to be worse with walking, 04/01. she has tried tylenol, motrin and ultram, icing and elevation and nothing helped There is no problem list on file for this patient. BP 124/64 Pulse 94 Temp (!) 35.9 ?C (96.6 ?F) Resp 16 Wt 81.2 kg (179 lb) BMI 28.04 kg/m? ALLERGIES Allergen Reactions - Ceftin [Cefuroxime * Unknown - Codeine Unknown - Keflex [Cephalexin] Unknown Current Outpatient Prescriptions: cyclobenzaprine (FLEXERIL) 10 mg tablet Take one tab po qhs only (Patient not taking: Reported on 12/10/2017 ) Disp: 7 tablet Rfl: 0 Mynfnhgtuqdbwwn-Jrralhutq-EW (BROMFED DM) 2-30-10 mg/5 mL syrup Take 5 mL by mouth four times daily as needed. (Patient not taking: Reported on 12/10/2017 ) Disp: 120 mL Rfl: 0 metoprolol tartrate, short acting, 25 mg tablet Take 25 mg by mouth twice daily. Disp: Rfl: acetaminophen-HYDROcodone 5-500 mg tablet Take 1-2 tablets by mouth every 4 hours as needed for Pain. Disp: 20 tablet Rfl: 0 ondansetron orally disintegrating 4 mg disintegrating tablet Take 1 tablet by mouth every 4 hours as needed for Nausea/Vomiting. Disp: 8 tablet Rfl: 0 No current facility-administered medications for this visit. Review of Systems Constitutional: Positive for chills and fever. Musculoskeletal: Positive for joint pain. Negative for falls. Endo/Heme/Allergies: Does not bruise/bleed easily. Objective Physical Exam Constitutional: She is oriented to person, place, and time and well-developed, well-nourished, and in no distress. No distress. HENT: Head: Normocephalic and atraumatic. Eyes: Conjunctivae and EOM are normal. Pupils are equal, round, and reactive to light. Musculoskeletal: Right ankle: She exhibits swelling. No tenderness. Right lower leg: She exhibits tenderness (along the lateral side of the tib/fib where the ankle meetst. ) and swelling (mild). She exhibits no bony tenderness, no deformity and no laceration. Legs: There is no bruising and the incision is healed nicely from her surgical fix of the fracture Neurological: She is alert and oriented to person, place, and time. Gait normal. GCS score is 15. Skin: She is not diaphoretic. Psychiatric: Affect and judgment normal. ASSESSMENT/PLAN: 1. Pain of right lower leg - ICD9: 729.5, ICD10: M79.661 - based on the review of the xray, I phoned [facility], which is who repaired her fracture and they instructed me to send her to the ER with crutches and no weight bearing to the right leg - Report was phoned to [facility] - XR TIBIA FIBULA 2V AP/LAT RT Mary Ferreira APRN.CNP CNOV Observed: 12/10/2017 Status: COMPLETED Source: [place] 10:45 AM [facility] REPOSITORY [facility] KEITH SIBLEY ([id number]) 1985 F Date Time Provider Department 12/10/17 10:45 AM MARY FERREIRA (DAGOBERTO) [facility] During your visit today, we recorded the following information about you: Temperature Pulse Respiration Blood pressure 96.6 degrees 94/minute 16/minute 124/64 Weight 81.2 kg Mary Ferreira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 10/23/17 Chief Complaint: [] Injury to right foot and ankle. History of Present Illness: The patient is a 32 F injury to her right ankle. 2 days ago she got her foot wedged under a 4 linda and had to have it picked up off her foot and ankle. She is able to walk but with pain. Using Tylenol ibuprofen. No previous injury. Physical Examination: Vital signs reviewed General: Well-nourished well-developed Head: Normocephalic atraumatic Eyes: Pupils equal round and reactive to light extraocular movements intact ENT: TMs clear no hemotympanum no trauma Neck: Nontender full range of motion Cardiovascular: Regular rate rhythm no murmurs normal S1-S2 Respiratory: No distress clear to auscultation bilaterally chest nontender Abdomen: Soft nontender nondistended normal bowel sounds no masses Back: Nontender no CVA tenderness Extremities: Tenderness in the medial portion of the foot with a contusion. Tenderness over the right lateral malleolus of the ankle. Normal range of motion but with pain. Neuro alert oriented cranial nerves II through XII intact normal strength sensation reflexes Test Results: [] Emergency Department Course and Treatment: [] Given a Purchase tablet. X-rays of the ankle and foot obtained. The foot shows no fracture. X-ray of the ankle shows a distal fibular fracture. Given a walking boot instructed not to bear weight on it. Given crutches. Will follow-up with orthopedic will be given a short course of Purchase. Treatment Plan: [] Disposition: [] Impression: [] Right fibular fracture Right foot contusion This note was generated with Stick and Play dictation software. It may contain incorrect words, spelling, and punctuation that were not noted in review of the chart prior to signing ED Disposition - Plan for ED Patient: Chief Complaint: Lower Extremity Injury Referrals: Stephen Physician,No Primary [Primary Care Provider] - What to do if you have Problems For any increased pain, shortness of breath, bleeding, nausea or vomiting, chest pain, or any unexpected problems, contact your Primary Care Provider. Call [facility] [employer] [facility] ([phone]) or report to the closest Emergency Room. Call 911 if necessary. 04/10/07 653 <Electronically signed by Dakota Campoverde MD> Date Dakota Campoverde MD Cosigner Signature (If Indicated): Date CC: No Primary Care Physician DISCHARGE INSTRUCTION Observed: 10/23/2017 Status: F Source: [place] 6:54 AM [facility] REPOSITORY [facility] Medical Records Department [address] [place] [address] Discharge Instruction 10/23/17101 MR#: [id number] Acct: [id number] Name: KEITH SIBLEY Rep #: [id number] : 1985 32 From: Dakota Campoverde MD PCP: Care Physician, No Primary Status: DEP ER ED Disposition - Plan for ED Patient: Disposition: Home or Assisted Living Chief Complaint: Lower Extremity Injury Instructions: ED Fx Ankle Lateral Malleolus Prescriptions: Hydrocodone Bitart/Apap 5-325 [Purchase 5/325] 1 - 2 tab PO Q4H PRN PRN 3 Days #12 tab PRN Reason: Pain Referrals: Care Physician,No Primary [Primary Care Provider] - Martínez Dixon, [STAFF PHYSICIAN] - What to do if you have Problems For any increased pain, shortness of breath, bleeding, nausea or vomiting, chest pain, or any unexpected problems, contact your Primary Care Provider. Call [facility] ([phone]) or report to the closest Emergency Room. Call 911 if necessary. 10/23/17653 <Electronically signed by Dakota Campoverde MD> Date Dakota Campoverde MD Cosigner Signature (If Indicated): Date CC: No Primary Care Physician ANKLE MIN 3 VIEWS Observed: 10/23/2017 Status: F Source: [place] 12:34 AM [facility] REPOSITORY [facility] Imaging Services [address] [place] [address] Ankle min 3 Views MR#: [id number] Acct: [id number] Name: KEITH SIBLEY Rep #: [id number] : 1985 F 32 From: Jayme Oleary PCP: Care Physician, No Primary Status: REG ER Study: Ankle min 3 Views Date of Exam: 10/23/17 Exam# [id number] Ordering Dr: Dakota Campoverde MD STUDY: X-RAY - RIGHT ANKLE REASON FOR EXAM: Female, 32 years old. Lateral ankle pain after 4 linda ran over foot. TECHNIQUE: 3 view(s) of the ankle. COMPARISON: None. FINDINGS: Oblique minimally displaced fracture distal fibular diaphysis. Distal tibia is normal. Normal tibiotalar articulation and ankle mortise. Normal visualized talus and calcaneus. The visualized subtalar, talonavicular, calcaneocuboid and tarsal articulations are normal. Mild soft tissue swelling adjacent to the medial and lateral malleoli. RAD/Ankle min 3 Views IMPRESSION: Minimally displaced fracture distal fibular diaphysis. Electronically Signed: Jayme Oleary MD at 1:16 EDT , Service support , CC: No Primary Care Physician; Dakota Campoverde MD Solutions Manager: Signed FOOT MIN 3 VIEWS Observed: 10/23/2017 Status: F Source: [place] 12:34 AM [facility] REPOSITORY [facility] Imaging Services [address] [place] [address] Foot min 3 Views MR#: [id number] Acct: [id number] Name: KEITH SIBLEY Rep #: [id number] : 1985 F 32 From: Jayme Oleary PCP: Care Physician, No Primary Status: REG ER Study: Foot min 3 Views Date of Exam: 10/23/17 Exam# [id number] Ordering Dr: Dakota Campoverde MD STUDY: X-RAY - RIGHT FOOT CLINICAL: Female, 32 years old. Medial foot pain after 4 linda right upper foot. TECHNIQUE: 3 view(s) of the foot. COMPARISON: Right ankle series October 23, 2017. FINDINGS: Normal talus, calcaneus, and tarsal bones. Normal visualized subtalar, talonavicular, calcaneocuboid, tarsal and tarsometatarsal articulations. Normal metatarsi. Normal metatarsophalangeal joint of the great toe. Normal tibial and fibular sesamoid bones. Normal interphalangeal joint of the great toe. Normal phalanges of the great toe. Normal second through fifth metatarsophalangeal joints. Normal interphalangeal joints and phalanges of the lesser toes. Oblique minimally displaced fracture distal fibular diaphysis best seen on the ankle series. Mild soft tissue swelling adjacent to the medial and lateral malleoli. The soft tissue structures are otherwise unremarkable. RAD/Foot min 3 Views IMPRESSION: No acute findings in the foot. Minimally displaced fracture distal fibular diaphysis. Electronically Signed: Jayme Oleary MD at 1:19 EDT , Service support , CC: No Primary Care Physician; Dakota Campoverde MD Solutions Manager: Signed ALLERGIES ALLERGIES DATE TYPE / CODE NAME / CODE REACTION SEVERITY SOURCE 07/06/2018 Drug cefuroxime Other Unknown [place] Allergy/416 axetil/[id number] [facility] 551304[facility]OM [facility] Repository 07/06/2018 Drug cephalexin Anaphylaxis Unknown [place] Allergy/416 monohydrate/F000 Community 246968([facility] 839320[facility] 07/06/2018 Drug codeine/[id number] Unknown Unknown [place] Allergy/416 50(RXNORM) Community 145995([facility] ED CT) Repository 11/07/2012 DRUG CEFUROXIME UNKNOWN [facility] INGREDI/419 AXETIL [address] [place] 846584(SNOM Repository ED CT) 11/07/2012 DRUG CODEINE UNKNOWN [facility] INGREDI/[address] [place] 587788(SNOM Repository ED CT) 11/07/2012 DRUG CEPHALEXIN UNKNOWN [facility] INGRED/[facility] [address] [place] 542200(SNOM Repository ED CT) ENCOUNTERS ENCOUNTERS ADMIT/DISCHARGE ACCOUNT NUMBER ADMITTING ENCOUNTER LOCATION SOURCE CLASS 07/26/2018/07/29/19 [id number] Ambulatory [address] [place] Repository 07/06/2018/07/06/20 [id number] Emergency [address] ng:ED Repository 04/07/2018/04/08/20 [id number] Emergency [address] ng:ED Repository 03/10/2018/03/10/20 [id number] Ambulatory [address] Repository 03/10/2018/03/13/20 [id number] Ambulatory [address] Repository 01/16/2018/01/17/20 [id number] Emergency [address] ng:ED Repository 12/25/2017 [id number] Ambulatory BMSBuilding:BM [place] [facility] Repository 12/11/2017/12/12/19 [id number] Ambulatory [address] [facility] Repository ng:Emily 12/10/2017/12/11/19 [id number] Emergency [address] ng:ED Repository 12/10/2017/12/11/19 [id number] Ambulatory [address] Repository 12/10/2017/01/05/20 [id number] Ambulatory [address] Repository 11/20/2017 [id number] [facility] 11/20/2017/11/21/19 [id number] Ambulatory BMSBuilding:BM [place] [address] Repository 11/07/2017 [id number] Ambulatory BMSBuilding:BM [place] S[facility] Repository 11/07/2017/11/08/19 [id number] Ambulatory [address] ng:SDCRoom: Repository AC18 10/29/2017 [id number] Ambulatory [facility] ng:HPRAD Repository 10/29/2017/10/30/19 [id number] Ambulatory BMSBuilding:BM [place] [address] Repository 10/23/2017/10/24/19 [id number] Emergency [address] ng:ED Repository PAYERS PAYERS ENCOUNTER GUARANTOR PAYER SUBSCRIBER SOURCE 07/06/2018 KEITH L Primary NOT GIVENUNK [place] [id number] Insurance:SELF PAY [facility] [id number]: Number: Effective Repository Date:2018-07-06 () 04/07/2018 KEITH L Primary NOT GIVENUNK [place] [id number] Insurance:SELF PAY [facility] 96682Rhs: Number: Effective Repository Date:2018-04-07 () 01/16/2018 KEITH L Primary KEITH L [place] [id number] Insurance:MOLINAPolic MILLERDOB: [facility], Number: [id number] 049[address]Jne: [id number] Repository Date:7540-98-95[address] () [address] [place] [address] 23294LP: 01/16/2018 Secondary NOT GIVENUNK [place] Insurance:SELF PAY [facility] Number: Effective Repository Date:2018-01-16 12/25/2017 KEITH L Primary NOT GIVENUNK [place] [id number] Insurance:SELF PAY [facility] [id number]: Number: Effective Repository Date:2017-11-20 () 12/10/2017 KEITH L Primary KEITH L [place] [id number] Insurance:MOLINAPolic [facility] Number: [id number] [facility] 98881Psq: [id number] Repository Date:0955-10-13FU [address] () [address] [place] [address] 85833NQ: 12/10/2017 Secondary NOT GIVENUNK [place] Insurance:SELF PAY [facility] Number: Effective Repository Date:2017-12-10 11/20/2017 KEITH L Primary NOT GIVENUNK [place] [id number] Insurance:SELF PAY [facility] [id number]: Number: Effective Repository Date:2017-11-20 () 11/20/2017 KEITH Salazar Primary NOT GIVENUNK [place] [id number] Insurance:SELF PAY [facility] [id number]: Number: Effective Repository Date:2017-11-20 () 11/07/2017 KEITH L Primary KEITH L [place] [id number] Insurance:MOLINAPolic [facility]OB[facility] y Number: [id number] [facility] [address]Hia: [id number] Repository Date:5075-40-97PR [address] () [address] [place] [address] 68387DO: 11/07/2017 Secondary NOT GIVENUNK [place] Insurance:SELF PAY [facility] Number: Effective Repository Date:2017-11-07 11/07/2017 KEITH L Primary KEITH L [place] [id number] Insurance:MOLINAPolic [facility] y Number: [id number] [facility] [address]Onj: [id number] Repository Date:2695-19-22LJ [address]OX () [address] [address]DQ: 11/07/2017 Secondary NOT GIVENUNK [place] Insurance:SELF PAY [facility] Number: Effective Repository Date:2017-10-31 10/29/2017 KEITH L Primary NOT GIVENUNK [place] [id number] Insurance:SELF PAY [facility] 08868Xop: Number: Effective Repository Date:2017-10-29 () 10/29/2017 KEITH L Primary KEITH L [place] [id number] Insurance:MOLINAPolic MILLERDOB: [facility] UMANG, y Number: [id number] [facility] [address]Wvc: [id number] Repository Date:6263-14-88AN [address] () [address] [place] [address] 56811CT: 10/29/2017 Secondary NOT GIVENUNK [place] Insurance:SELF PAY [facility] Number: Effective Repository Date:2017-10-29 10/23/2017 KEITH L Primary NOT GIVENUNK [place] [id number] Insurance:SELF PAY [facility] [id number]: Number: Effective Repository Date:2017-10-23 ()
== END 2018-07-06 16:13 | disposition home or self-care (01) ==
PROVIDERS: Emergency Provider Emergency Medicine
DX: S73.101A Unspecified sprain of right hip, initial encounter (principal); W22.8XXA Striking against or struck by other objects, initial encounter; Y93.89 Activity, other specified; Z72.0 Tobacco use
CPT/HCPCS: 73502; 99283

== ENCOUNTER 2018-10-31 18:03 | Emergency (ER) | payer SELFPAY ==
[2018-10-31 18:04] VITALS: BP 139/82; PULSE 80; RESP 16; TEMP 37; O2SAT 100; BMI 25.9
--- NOTE | 2018-10-31 18:12 | RAD_ITS ---
STUDY: X-RAY - LEFT KNEE REASON FOR EXAM: Female, 33 years old. Patellar pain after carrying a refrigerator TECHNIQUE: 4 view(s) of the knee. COMPARISON: None. FINDINGS: No evidence of acute fracture or dislocation. There appears to moderate medial and lateral compartment degenerative change with severe degenerative change of the patellofemoral compartment. There is a partially calcified density in the superior joint space posterior to the patellar tendon measuring 3 x 2.2 cm. Unsure if this represents a loose body. RAD/Knee 4 or More Views IMPRESSION: No acute findings however, significant degenerative changes of the knee with possible joint loose body. Nonemergent CT or MRI of the left knee is recommended to further evaluate Electronically Signed: Joseph Castellano DO at 18:46 EDT Tel , Service support ,
--- NOTE | 2018-10-31 18:26 | ED.VISSUMM ---
- ER Visit Summary Date of Service: 10/31/18 Chief Complaint: Left knee injury History of Present Illness: The patient is a 33 F presents to the emergency department left knee injury. Patient states that 2 days ago, she was moving a refrigerator. States that night, she had some tightness in her knee. She states it really did not seem to bother her too much. Today, she was getting out of bed, she felt something pop in the lateral aspect of her knee. She now some pain bearing weight. She denies other injury. She is otherwise been in her normal state of health. Physical Examination: Exam is relatively unremarkable. There is a small effusion of the knee. Patient is able to extend without issue. Anterior and posterior drawer testing is negative. Pulses are 2+ and symmetric in bilateral lower extremities. There is no cords. She does have some tenderness over the lateral tibial plateau. Test Results: [] Emergency Department Course and Treatment: The patient has no gross laxity of the knee. I did obtain plain films. There is a questionable old loose body within the knee. There is no acute fracture. The patient was placed in an [place] wrap. She will continue anti-inflammatories. She will be given outpatient orthopedic follow-up. She is comfortable with this plan of care. Treatment Plan: [] Disposition: Discharge Impression: Left knee sprain This note was generated with [employer] dictation software. It may contain incorrect words, spelling, and punctuation that were not noted in review of the chart prior to signing ED Disposition - Plan for ED Patient: Instructions: ED Meniscal Injury Knee Poss Prescriptions: Naproxen [Naprosyn] 500 mg PO BID PRN #20 tab Referrals: Geo Mena MD [STAFF PHYSICIAN] -
[2018-10-31] MEDS: Naproxen 500 MG Tablet PO (18:35)
== END 2018-10-31 19:03 | disposition home or self-care (01) ==
PROVIDERS: Emergency Provider Emergency Medicine
DX: S83.92XA Sprain of unspecified site of left knee, initial encounter (principal); X58.XXXA Exposure to other specified factors, initial encounter; Y93.89 Activity, other specified; Y92.9 Unspecified place or not applicable; Z72.0 Tobacco use
CPT/HCPCS: 73564; 99283

== ENCOUNTER 2018-11-07 13:26 | Emergency (ER) | payer SELFPAY ==
[2018-11-07 13:27] VITALS: BP 136/97; PULSE 69; RESP 16; TEMP 36.9; O2SAT 100; BMI 27.2
--- NOTE | 2018-11-07 14:30 | RAD_ITS ---
STUDY: X-RAY - LEFT KNEE REASON FOR EXAM: Female, 33 years old. Pain following a recent injury. TECHNIQUE: 4 view(s) of the knee. COMPARISON: Comparison is made with prior examination dated October 31, 2018. FINDINGS: Normal visualized distal femur. Normal visualized proximal tibia and fibula. Normal proximal tibiofibular articulation. There is moderate degenerative arthrosis of the medial femorotibial compartment with moderate joint space narrowing. There is moderate degenerative arthrosis of the lateral femorotibial compartment with moderate joint space narrowing. There is moderate degenerative arthrosis of the patellofemoral articulation. Stable partially calcified density in the superior joint space posterior to the patellar tendon measuring 3 cm x 2.2 cm. This may represent myositis ossificans. RAD/Knee 4 or More Views IMPRESSION: Degenerative arthrosis. There has been no change since prior study. Electronically Signed: Parvez Hi, at 15:58 EDT , Service support ,
[2018-11-07] MEDS: Ketorolac 60 MG/2 ML Vial IM (14:36)
--- NOTE | 2018-11-07 16:14 | ED.VISSUMM ---
- ER Visit Summary Date of Service: 11/07/18 Chief Complaint: Knee pain History of Present Illness: The patient is a 33 F who presents with left knee pain that has been getting worse over the past week. Patient states she has an appointment to see Dr. Mena for this. Patient states the pain is unbearable. Patient states her pain is worse with flexion. Patient describes her pain as stabbing. Patient denies any paresthesias or weakness. Patient denies any new injuries. Patient states her swelling has gotten worse. Patient states she is scheduled for an MRI. Physical Examination: Vital signs are stable. Patient is afebrile. Patient is in no acute distress. Musculoskeletal exam reveals tenderness over the anterior and lateral aspects of the left knee. There is a moderate effusion. There is no bony crepitance or step-off. There is no obvious deformity noted. Range of motion was limited in all motions of the left knee secondary to pain. There is no laxity appreciated. Neurovascular exam is intact. Test Results: X-rays of the left knee were obtained. There is no acute fracture. There are degenerative changes. This is unchanged from previous x-ray. Emergency Department Course and Treatment: Patient was given an injection of Toradol here. Patient was given a prescription for Naprosyn. Patient was given a knee immobilizer. Patient was instructed to ice and elevate the left knee. Patient was instructed to follow-up with Dr. Mena as scheduled. Patient understood and was agreeable with the plan. All questions were answered. Disposition: Discharge home Impression: Left knee pain This note was generated with SMIC dictation software. It may contain incorrect words, spelling, and punctuation that were not noted in review of the chart prior to signing ED Disposition - Plan for ED Patient: Disposition: Home or Assisted Living Diagnosis: Left knee pain Instructions: ED Knee Pain UKO Prescriptions: Naproxen [Naprosyn] 500 mg PO BID PRN #20 tab Referrals: Care Physician,No Primary [Primary Care Provider] - Geo Mena MD [STAFF PHYSICIAN] - Keep Saqib appointment
--- NOTE | 2018-11-07 16:19 | ED.DCSUM_ITS ---
- ER Visit Summary Date of Service: 11/07/18 Chief Complaint: Knee pain History of Present Illness: The patient is a 33 F who presents with left knee pain that has been getting worse over the past week. Patient states she has an appointment to see Dr. Mena for this. Patient states the pain is unbearable. Patient states her pain is worse with flexion. Patient describes her pain as stabbing. Patient denies any paresthesias or weakness. Patient denies any new injuries. Patient states her swelling has gotten worse. Patient states she is scheduled for an MRI. Physical Examination: Vital signs are stable. Patient is afebrile. Patient is in no acute distress. Musculoskeletal exam reveals tenderness over the anterior and lateral aspects of the left knee. There is a moderate effusion. There is no bony crepitance or step-off. There is no obvious deformity noted. Range of motion was limited in all motions of the left knee secondary to pain. There is no laxity appreciated. Neurovascular exam is intact. Test Results: X-rays of the left knee were obtained. There is no acute fracture. There are degenerative changes. This is unchanged from previous x- ray. Emergency Department Course and Treatment: Patient was given an injection of Toradol here. Patient was given a prescription for Naprosyn. Patient was given a knee immobilizer. Patient was instructed to ice and elevate the left knee. Patient was instructed to follow-up with Dr. Mena as scheduled. Patient understood and was agreeable with the plan. All questions were answered. Disposition: Discharge home Impression: Left knee pain This note was generated with Orange Le[employer] dictation software. It may contain incorrect words, spelling, and punctuation that were not noted in review of the chart prior to signing ED Disposition - Plan for ED Patient: Disposition: Home or Assisted Living Diagnosis: Left knee pain Instructions: ED Knee Pain UKO Prescriptions: Naproxen [Naprosyn] 500 mg PO BID PRN #20 tab Referrals: Care Physician,No Primary [Primary Care Provider] - Geo Mena MD [STAFF PHYSICIAN] - Keep [place]qib appointment
[2018-11-07 16:27] VITALS: BP 146/85; PULSE 63; RESP 17; O2SAT 99
--- NOTE | 2018-11-07 16:48 | ED.RN ---
DISCHARGE INSTRUCTIONS GIVEN TO AND REVIEWED WITH PATIENT, PATIENT DENIES QUESTIONS OR CONCERNS AND VOICES UNDERSTANDING OF DISCHARGE INSTRUCTIONS. PT AMBULATES OUT OF ROOM WITHOUT DIFFICULTY.
== END 2018-11-07 16:48 | disposition home or self-care (01) ==
PROVIDERS: Emergency Provider Emergency Medicine
DX: M25.562 Pain in left knee (principal); Z72.0 Tobacco use
CPT/HCPCS: 73564; 96372; 99283

== ENCOUNTER 2021-01-10 20:49 | Emergency (ER) | payer SELFPAY ==
[2021-01-10 20:50] VITALS: BP 155/91; PULSE 97; RESP 15; TEMP 36.1; O2SAT 100; BMI 27.3
--- NOTE | 2021-01-10 21:20 | RAD_ITS ---
STUDY: X-RAY - LEFT KNEE REASON FOR EXAM: Female, 35 years old. PAIN TECHNIQUE: 3 view(s) of the knee. COMPARISON: None. FINDINGS: There is demineralization of the visualized distal femur. There is demineralization of the tibia and fibula. Normal proximal tibiofibular articulation. There is moderate degenerative arthrosis of the medial femorotibial compartment with moderate joint space narrowing. There is moderate degenerative arthrosis of the lateral femorotibial compartment with moderate joint space narrowing. There is severe degenerative arthrosis of the patellofemoral articulation. Osseous amorphous body overlies the suprapatellar recess. 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 Electronically Signed: Calin Pendleton DO at 22:07 EDT , Service support ,
--- NOTE | 2021-01-10 22:03 | EDS_ITS ---
HPI History of Present Illness Chief Complaint: Lower Extremity Injury Informant: patient Onset/Context/Timing Onset: Weeks (1 week) Context: Gradual Onset Timing: Waxes and wanes Quality of Pain: Sharp and Stabbing Current Severity: Mild Maximum Severity: Moderate Narrative Narrative: Patient presents with a 1 week history of left knee pain. She states anytime she tries to stand on it it feels like it is going to give out on her. She has increased pain along the superior patellar tendon when she flexes her knee. She states she dislocated her knee when she was in [place]. She has not seen an orthopedic doctor for quite some time. PFSH PFSH Home Medications naproxen [Naprosyn] 500 mg PO BID PRN #20 tab 01/10/21 [Rx Last Taken Unknown] Allergy/AdvReac Type Severity Reaction Status Date / Time cefuroxime axetil Allergy Other Verified 01/10/21 20:51 [From Ceftin] cephalexin monohydrate Allergy Anaphylaxis Verified 01/10/21 20:51 [From Keflex] codeine Allergy Unknown Verified 01/10/21 20:51 Surgical History s/p right ankle ORIF Social History Smoking Status: Current every day smoker tobacco type: cigarettes ROS ROS ED Constitutional Constitutional ED: Denies chills or fever(s) Eyes Eyes: Denies change in vision ENT ENT ED: Denies sore throat Cardiovascular Cardiovascular: Denies chest pain Respiratory/Chest Respiratory/Chest: Denies cough or dyspnea Gastrointestinal Gastrointestinal: Denies abdominal pain, diarrhea, nausea or vomiting Genitourinary Genitourinary ED: Denies dysuria Musculoskeletal Musculoskeletal: Reports arthralgias; Denies back pain Integumentary Denies rash Neurologic Neurologic: Denies headache(s), paresthesias or weakness Psychiatric Psychiatric: Denies anxiety or depression Endocrine Endocrinology: Denies polydipsia or polyuria Allergic/Immunologic Allergic/Immunologic ED: Denies urticaria EXAM Physical Exam Const Vital Signs: 01/10/21 20:50 Temperature 96.9 F L Temperature Source Temporal Pulse Rate 97 Respiratory Rate 15 Blood Pressure 155/91 H Blood Pressure Mean 112 Pulse Ox 100 Oxygen Delivery Method Room Air Positive well nourished and well developed General Appearance ED: well developed HEENT Reports normocephalic and head/scalp atraumatic Eyes PERRL and EOMs intact bilaterally Neck supple Chest Wall inspection of chest normal and palpation of chest normal Resp normal respiratory effort and clear to auscultation bilaterally Cardio regular rate and regular rhythm GI normal to inspection, nondistended, normoactive bowel sounds Palpation: soft Extremity Extremity Narrative: Tenderness to palpation just superior and lateral to the left patella. Full range of motion at the joint. Strong distal pulses. No significant joint laxity noted. Neuro oriented x3 Sensorium / Orientation: alert Psych mental status grossly normal Skin no rashes or lesions noted MDM MDM MDM Narrative Medical decision making narrative: Knee x-rays were obtained per nursing protocol. Patient is given naproxen. Radiography Diagnostic Testing: Radiology Impression Knee X-Ray 01/10/21 21:20 IMPRESSION: Tricompartmental osteoarthrosis as above with suprapatellar recess osseous body. Electronically Signed: Calin Pendleton DO at 22:07 EDT , Service support , Treatment and Re-Evaluation Comments:: Per my interpretation knee x-ray shows chronic changes with significant arthrosis. Radiologist interpretation is reviewed. The osseous body noted in the suprapatellar region is the area where the patient is pointing and describing her area of pain. This does appear slightly larger than prior x- ray may be causing some of her symptoms. She will be given a prescription for naproxen and referred to orthopedics for follow-up. Henok wrap will be applied to the knee. Discharge Plan Triage Chief Complaint: Lower Extremity Injury ED Provider: Mikayla Hanson Dx/Rx/DC Orders Clinical Impression: Knee sprain Instructions: ED Knee Sprain Prescriptions: New naproxen [Naprosyn] 500 mg tablet 500 mg PO BID PRN (Reason: pain) Qty: 20 RF: 0 Primary Care Provider: Care Physician,No Primary Referrals: Martínez Esteves DO [STAFF PHYSICIAN] - As soon as possible Care Physician,No Primary [Primary Care Provider] - Disposition Disposition: Home, self care
[2021-01-10] MEDS: Naproxen 500 MG Tablet PO (22:10)
== END 2021-01-10 23:38 | disposition home or self-care (01) ==
PROVIDERS: Emergency Provider Emergency Medicine
DX: S83.92XA Sprain of unspecified site of left knee, initial encounter (principal); F17.210 Nicotine dependence, cigarettes, uncomplicated; X58.XXXA Exposure to other specified factors, initial encounter
CPT/HCPCS: 73562; 99283

== ENCOUNTER 2025-04-27 07:53 | Emergency (ER) | payer SELFPAY ==
[2025-04-27 07:54] VITALS: BP 164/93; PULSE 78; RESP 16; TEMP 36.6; O2SAT 99; BMI 29.0
--- NOTE | 2025-04-27 08:02 | EDS_ITS ---
HPI History of Present Illness Chief Complaint: Upper Extremity Injury Detail of Chief Complaint: Crush injury left long finger Informant: patient Occured/Mechanism Mechanism/Context: Yes injury and Yes blunt trauma Onset/Context/Timing Onset: Yesterday Context: Sudden Onset Timing: Continuous Quality of Pain: Dull and Throbbing Location: Distal left long finger Current Severity: Moderate Maximum Severity: Severe Worsened by: Pressure or use Relieved by: Nothing Associated Symptoms Associated Symptoms: Negative for Parasthesia, Weakness or Loss of Funtion Narrative Narrative: Patient is a 40-year-old [id number] woman who presents with crush injury to her left long finger. She denies paresthesia, anesthesia or inability to use the digit. She denies prior injury. Prior similar symptoms: No Recent Illness/Hospitalization: No PFSH PFSH Home Medications ?Medication ?Instructions ?Recorded ?Last Taken ?Type naproxen 500 mg tablet (Naprosyn) 500 mg PO BID PRN pa in #20 tabs 01/10/21 Unknown Rx Allergy/AdvReac Type Severity Reaction Status Date / Time cefuroxime axetil (From Allergy Other Verified 04/27/25 07:54 Ceftin) cephalexin monohydrate (From Allergy Anaphylaxis Verified 04/27/25 07:54 Keflex) codeine Allergy Unknown Verified 04/27/25 07:54 Surgical History (Updated 02/19/22 @ 09:25 by Tamera Dominguez) s/p right ankle ORIF Social History Smoking Status: Current every day smoker tobacco type: cigarettes ROS ROS ED Integumentary Reports other Details: Greater than a 50% subungual hematoma left long finger ; Denies rash Neurologic Neurologic: Denies paresthesias or weakness Hematologic/Lymphatic Hematologic/Lymphatic: Denies easy bleeding or easy bruising EXAM Physical Exam Const Vital Signs: 04/27/25 07:54 Temperature 97.9 F Temperature Source Oral Pulse Rate 78 Respiratory Rate 16 Blood Pressure 164/93 H Blood Pressure Mean 116 Pulse Ox 99 Oxygen Delivery Method Room Air Positive well nourished and well developed General Appearance ED: well developed and NAD; Negative for cyanotic or diaphoretic HEENT Reports moist mucous membranes normocephalic and atraumatic Eyes PERRL and EOMs intact bilaterally Resp normal respiratory effort Cardio regular rate and regular rhythm Extremity full ROM; Negative for normal to inspection Extremity Narrative: There is a subungual hematoma noted left long finger. Greater than 50%. The extensor commonness tendon is functionally intact. The flexor digitorum superficialis and flexor digitorum profundus are intact. Sensation is intact. Capillary fill is normal. Median, radial and ulnar function intact. Neuro CN's II-XII intact bilaterally, moves all extremities, no focal motor deficits and no sensory deficits noted Sensorium / Orientation: alert Psych mental status grossly normal Skin Skin Narrative: Unremarkable MDM MDM MDM Narrative Medical decision making narrative: X-ray was obtained to evaluate for fracture of the distal phalanx. Since alesha ent has a subungual hematoma that is greater than 25% recommendation is trephination to alleviate the pressure and subungual hematoma. This was performed without difficulty. Patient tolerated procedure.. Radiography Chest X-Ray - ED: Read by ED Physician (Three-view x-ray of the left long finger reveals no evidence of fracture. There is evidence of soft tissue swelling. There is entirely reviewed interpreted by me at 0826) Discharge Plan Triage Chief Complaint: Upper Extremity Injury ED Provider: Rhys Nowak Dx/Rx/DC Orders Clinical Impression: Contusion of left middle finger with damage to nail, initial encounter, Subungual hematoma of left middle finger, Elevated blood pressure reading without diagnosis of hypertension Instructions: ED Finger Contusion, ED Hypertension, To Be Confirmed Prescriptions: No Action naproxen [Naprosyn] 500 mg tablet 500 mg PO BID PRN (Reason: pain) Qty: 20 0RF Primary Care Provider: Care Physician,No Primary Referrals: Care Physician,No Primary [Primary Care Provider, Medical] [facility] [Non-Staff, Medical] - 1-2 Weeks Activity Restrictions/Additional Instructions: 1. You may take either Tylenol or ibuprofen for the pain. 2. Application of ice 6 times a day will help with the discomfort. 3. Your blood pressure is elevated and you should have it reassessed in 1 to 2 weeks. She did not have a physician you were referred to the [facility] Print Language: Divehi Disposition Disposition: Home, Self Care
--- NOTE | 2025-04-27 08:15 | RAD_ITS ---
PROCEDURE: FINGER(S) MIN 2 VIEWS 04/27/2025 REASON FOR EXAM: INJURY/PAIN TECHNIQUE: Procedure Code: RADFIN Modality: DX Procedure: FINGER(S) MIN 2 VIEWS Laterality: Left COMPARISON: None FINDINGS: Bones: No fracture Joints: Normal alignment. Soft tissues: Soft tissue swelling distal phalanx 3rd digit Other: No foreign body RAD/Finger(s) Min 2 Views IMPRESSION: Soft tissue swelling. No fracture Reading Location: [id number]
[2025-04-27 08:39] VITALS: BP 151/88; PULSE 78; RESP 14; TEMP 36.6; O2SAT 100
== END 2025-04-27 08:41 | disposition home or self-care (01) ==
PROVIDERS: Emergency Provider Emergency Medicine; Visit Provider Emergency Medicine
DX: S60.132A Contusion of left middle finger with damage to nail, initial encounter (principal); X58.XXXA Exposure to other specified factors, initial encounter; R03.0 Elevated blood-pressure reading, without diagnosis of hypertension; F17.210 Nicotine dependence, cigarettes, uncomplicated
CPT/HCPCS: 11740; 73140; 99282